=== PATIENT | female | born 1980 | race Caucasian/White ===

== ENCOUNTER 2016-07-10 21:25 | Emergency (ER) | payer OTHER ==
[2016-07-10 22:12] LABS: Basophils % (Auto) 0.6 % (0.0-1.8); Eosinophils % (Auto) 2.1 % (0.0-4.3); Hematocrit 39.2 % (30.3-42.9); Hemoglobin 12.8 gm/dl (10.1-14.3); Mean Corpuscular HGB Conc 33 % (30-34); Mean Corpuscular Hemoglobin 27 pg (28-32); Mean Corpuscular Volume 82 fl (79-97); Platelet Count 336 K/mm3 (140-440); Red Blood Count 4.81 M/mm3 (3.65-5.03); Red Cell Distribution Width 14.5 % (13.2-15.2); White Blood Count 10.3 K/mm3 (4.5-11.0)
[2016-07-10 22:29] LABS: Alanine Aminotransferase 16 units/L (7-56); Albumin 4.1 g/dL (3.9-5); Alkaline Phosphatase 104 units/L (35-129); Anion Gap 16 mmol/L; Bilirubin,Total 0.2 mg/dL (0.1-1.2); Blood Urea Nitrogen 10 mg/dL (7-17); Calcium 8.8 mg/dL (8.4-10.2); Carbon Dioxide 27 mmol/L (22-30); Chloride 98.4 mmol/L (98-107); Glucose 85 mg/dL (65-100); Lipase 33 units/L (13-60); Potassium 3.6 mmol/L (3.6-5.0); Sodium 138 mmol/L (137-145); Total Protein 8.2 g/dL (6.3-8.2)
[2016-07-10 22:58] LABS: Bacteria,Urine 1+ /HPF (Negative); Bilirubin,Urine NEG (Negative); Blood,Urine SM (Negative); Ketones,Urine NEG (Negative); Leukocyte Esterase,Urine TR (Negative); Mucus,Urine FEW /HPF; Nitrite,Urine NEG (Negative); Protein,Urine <15 mg/dL mg/dL (Negative); Urobilinogen,Urine < 2.0 mg/dL (<2.0)
[2016-07-11] MEDS ORDERED: NORCO 5/325 PO ONE (08:36)
--- NOTE | 2016-07-11 08:39 | Emergency Department Report ---
ED Abdominal Pain HPI - General Chief Complaint: Abdominal Pain Stated Complaint: RT SIDE PAIN Time Seen by Provider: 07/11/16 08:18 Source: patient Mode of arrival: Ambulatory Limitations: Language Barrier - History of Present Illness Initial Comments: 35-year-old female presents to the emergency department complaining of abdominal pain. Patient describes sharp right upper quadrant abdominal pain that has been present for approximately 3 days. Pain is been constant and does not radiate. Patient denies associated nausea, vomiting, or diarrhea. She does report some burning in her chest as well. There's been no fever. There are no other complaints. MD Complaint: abdominal pain -: Gradual, days(s) (3) Location: RUQ Radiation: none Migration to: no migration Severity: severe Severity scale (0 -10): 10 Quality: sharp Consistency: constant Improves With: nothing Worsens With: nothing Associated Symptoms: denies other symptoms - Related Data Previous Rx's Medication Instructions Recorded Last Taken Type Famotidine [Pepcid] 10 mg PO BID #30 tablet 04/28/14 Unknown Rx Prednisone [predniSONE 5 mg (6-Day 5 mg PO .TAPER #1 tab.ds.pk 12/15/14 Unknown Rx Pack, 21 Tabs)] hydrOXYzine PAMOATE [Vistaril] 50 mg PO Q8H PRN #20 capsule 12/15/14 Unknown Rx Ciprofloxacin HCl [Ciprofloxacin 500 mg PO Q12H #14 tab 08/07/15 Unknown Rx TAB] Omeprazole [PriLOSEC] 20 mg PO QDAY #30 capsule. 08/07/15 Unknown Rx Famotidine [Pepcid] 20 mg PO BID #10 tablet 07/11/16 Unknown Rx traMADol [Ultram] 50 mg PO Q6HR PRN #20 tablet 07/11/16 Unknown Rx Allergies Allergy/AdvReac Type Severity Reaction Status Date / Time No Known Allergies Allergy Verified 01/01/14 17:52 ED Review of Systems ROS: Stated complaint: RT SIDE PAIN Other details as noted in HPI Comment: All other systems reviewed and negative Gastrointestinal: abdominal pain. denies: nausea, vomiting, diarrhea ED Past Medical Hx - Past Medical History Previous Medical History?: No - Surgical History Past Surgical History?: Yes Hx Cholecystectomy: Yes Additional Surgical History: c-sec x 3 - Family History Family history: no significant - Social History Smoking Status: Never Smoker Substance Use Type: None - Medications Home Medications: Home Medications Medication Instructions Recorded Confirmed Last Taken Type Famotidine [Pepcid] 10 mg PO BID #30 tablet 04/28/14 Unknown Rx Prednisone [predniSONE 5 mg (6-Day 5 mg PO .TAPER #1 tab.ds.pk 12/15/14 Unknown Rx Pack, 21 Tabs)] hydrOXYzine PAMOATE [Vistaril] 50 mg PO Q8H PRN #20 capsule 12/15/14 Unknown Rx Ciprofloxacin HCl [Ciprofloxacin 500 mg PO Q12H #14 tab 08/07/15 Unknown Rx TAB] Omeprazole [PriLOSEC] 20 mg PO QDAY #30 capsule. 08/07/15 Unknown Rx Famotidine [Pepcid] 20 mg PO BID #10 tablet 07/11/16 Unknown Rx traMADol [Ultram] 50 mg PO Q6HR PRN #20 tablet 07/11/16 Unknown Rx ED Physical Exam - General Limitations: Language Barrier General appearance: alert, in no apparent distress - Head Head exam: Present: atraumatic, normocephalic - Eye Eye exam: Present: normal appearance, PERRL, EOMI - ENT ENT exam: Present: normal exam, normal orophraynx, mucous membranes moist - Neck Neck exam: Present: normal inspection, full ROM. Absent: tenderness - Respiratory Respiratory exam: Present: normal lung sounds bilaterally. Absent: respiratory distress - Cardiovascular Cardiovascular Exam: Present: regular rate, normal rhythm, normal heart sounds - GI/Abdominal GI/Abdominal exam: Present: soft, tenderness (mild right upper quadrant tenderness to palpation), normal bowel sounds. Absent: distended, guarding, rebound - Extremities Exam Extremities exam: Present: normal inspection, full ROM. Absent: tenderness - Back Exam Back exam: Present: normal inspection, full ROM. Absent: tenderness - Neurological Exam Neurological exam: Present: alert, oriented X3. Absent: motor sensory deficit - Skin Skin exam: Present: warm, dry, intact ED Course Vital Signs 07/10/16 07/11/16 07/11/16 21:46 03:32 06:30 Temperature 98.2 F 98.1 F Pulse Rate 73 73 Respiratory 18 18 18 Rate Blood Pressure 127/77 125/77 Blood Pressure [Left] O2 Sat by Pulse 100 100 99 Oximetry 07/11/16 07:25 Temperature 97.9 F Pulse Rate 69 Respiratory 16 Rate Blood Pressure Blood Pressure 107/70 [Left] O2 Sat by Pulse 100 Oximetry ED Medical Decision Making - Lab Data Result diagrams: 07/10/16 21:58 07/10/16 21:58 - Radiology Data Radiology results: report reviewed Abdominal ultrasound is read as normal by radiology. - Medical Decision Making Lab and imaging results reviewed and discussed with the patient through the aid of an process development chemist. Patient reports symptoms are improved medication. Patient will be discharged home at this time. - Differential Diagnosis abdominal pain, cholecystitis, cholelithiasis, PUD, gastritis Critical care attestation.: If time is entered above; I have spent that time in minutes in the direct care of this critically ill patient, excluding procedure time. ED Disposition Clinical Impression: Acute gastritis with hemorrhage Qualifiers: Gastritis type: other gastritis Qualified Code(s): K29.01 - Acute gastritis with bleeding Disposition: DISCHARGED TO HOME OR SELFCARE Is pt being admited?: No Condition: Stable Instructions: Abdominal Pain (ED) Prescriptions: Famotidine [Pepcid] 20 mg PO BID #10 tablet traMADol [Ultram] 50 mg PO Q6HR PRN #20 tablet PRN Reason: Pain Referrals: PRIMARY CARE, [Primary Care Provider] - 3-5 Days Time of Disposition: 11:33 Print Language: YAKUT
--- NOTE | 2016-07-11 09:36 | Ultrasound Report ---
RIGHT UPPER QUADRANT ULTRASOUND: HISTORY: Right upper quadrant abdominal pain. Technique: Transabdominal ultrasound imaging with Doppler interrogation. FINDINGS: The gallbladder is surgically absent. The common duct is normal in caliber measuring 4.2 mm. Images of the liver parenchyma, pancreas, right kidney and aorta are within normal limits. No perihepatic ascites. IMPRESSION: Unremarkable right upper quadrant ultrasound.
[2016-07-11] MEDS ORDERED: NORCO 5/325 ONE (11:04)
[2016-07-11 11:49] VITALS: BP 113/65
== END 2016-07-11 11:57 | disposition home or self-care (01) ==
LOC: ED 21:25
DX: K29.01 Acute gastritis with bleeding (principal); Z90.49 Acquired absence of other specified parts of digestive tract
CPT/HCPCS: 36415; 76705; 80053; 81001; 81025; 83690; 85025

== ENCOUNTER 2017-05-20 00:41 | Emergency (ER) | payer MEDICAID ==
[2017-05-20 03:41] LABS: Basophils # (Auto) 0.1 K/mm3 (0.0-0.1); Basophils % (Auto) 0.9 % (0.0-1.8); Eosinophils # (Auto) 0.2 K/mm3 (0.0-0.4); Eosinophils % (Auto) 3.9 % (0.0-4.3); Hematocrit 37.3 % (30.3-42.9); Hemoglobin 12.5 gm/dl (10.1-14.3); Lymphocytes # (Auto) 1.7 K/mm3 (1.2-5.4); Mean Corpuscular HGB Conc 34 % (30-34); Mean Corpuscular Hemoglobin 27 pg (28-32); Mean Corpuscular Volume 80 fl (79-97); Monocytes # (Auto) 0.7 K/mm3 (0.0-0.8); Platelet Count 321 K/mm3 (140-440); Red Blood Count 4.69 M/mm3 (3.65-5.03); Red Cell Distribution Width 14.9 % (13.2-15.2)
[2017-05-20 03:51] LABS: Alanine Aminotransferase 19 units/L (7-56); Albumin 3.9 g/dL (3.9-5); BUN/Creatinine Ratio 20; Blood Urea Nitrogen 14 mg/dL (7-17); Calcium 8.3 mg/dL (8.4-10.2); Hemolysis Index 3; Lipase 32 units/L (13-60)
[2017-05-20 05:56] LABS: Bilirubin,Urine NEG (Negative); Blood,Urine LG (Negative); Color,Urine Yellow (Yellow); Mucus,Urine FEW /HPF; Nitrite,Urine NEG (Negative); Protein,Urine <15 mg/dL mg/dL (Negative); Urobilinogen,Urine < 2.0 mg/dL (<2.0)
[2017-05-20] MEDS ORDERED: ZOFRAN IM ONE (12:34)
[2017-05-20] MEDS ORDERED: MORPHINE IM ONE (12:34)
--- NOTE | 2017-05-20 12:39 | Emergency Department Report ---
ED Abdominal Pain HPI - General Chief Complaint: Abdominal Pain Stated Complaint: PAIN Time Seen by Provider: 05/20/17 12:16 Source: patient Mode of arrival: Ambulatory Limitations: No Limitations - History of Present Illness Initial Comments: Patient is 36 years old female history of peptic ulcer presented to the ER with chief complaint of epigastric pain, burning sensation and vomiting for the last 3 days. Patient denied any fever or diarrhea. No chest pain or shortness of breath. Patient denied any NSAID use recently. Patient denied any hematemesis or melena or hematochezia. MD Complaint: abdominal pain -: days(s) Location: epigastric Radiation: none Migration to: no migration Severity scale (0 -10): 8 Quality: burning - Related Data Previous Rx's Medication Instructions Recorded Last Taken Type Famotidine [Pepcid] 10 mg PO BID #30 tablet 04/28/14 Unknown Rx Prednisone [predniSONE 5 mg (6-Day 5 mg PO .TAPER #1 tab.ds.pk 12/15/14 Unknown Rx Pack, 21 Tabs)] hydrOXYzine PAMOATE [Vistaril] 50 mg PO Q8H PRN #20 capsule 12/15/14 Unknown Rx Ciprofloxacin HCl [Ciprofloxacin 500 mg PO Q12H #14 tab 08/07/15 Unknown Rx TAB] Omeprazole [PriLOSEC] 20 mg PO QDAY #30 capsule. 08/07/15 Unknown Rx Famotidine [Pepcid] 20 mg PO BID #10 tablet 07/11/16 Unknown Rx traMADol [Ultram] 50 mg PO Q6HR PRN #20 tablet 07/11/16 Unknown Rx Famotidine [Pepcid] 20 mg PO QDAY #30 tablet 02/03/17 Unknown Rx Sucralfate [Carafate] 1 gm PO Q6HR #120 tablet 02/03/17 Unknown Rx Allergies Allergy/AdvReac Type Severity Reaction Status Date / Time No Known Allergies Allergy Verified 01/01/14 17:52 ED Review of Systems ROS: Stated complaint: PAIN Other details as noted in HPI Comment: All other systems reviewed and negative Constitutional: denies: chills, fever Respiratory: denies: cough, shortness of breath, SOB with exertion, wheezing Cardiovascular: denies: chest pain, palpitations, dyspnea on exertion Gastrointestinal: abdominal pain, nausea, vomiting. denies: diarrhea, constipation, hematemesis, melena, hematochezia Neurological: denies: headache, weakness, numbness, paresthesias ED Past Medical Hx - Past Medical History Additional medical history: Gastritis - Surgical History Hx Cholecystectomy: Yes Additional Surgical History: c-sec x 3 - Social History Smoking Status: Never Smoker Substance Use Type: None - Medications Home Medications: Home Medications Medication Instructions Recorded Confirmed Last Taken Type Famotidine [Pepcid] 10 mg PO BID #30 tablet 04/28/14 Unknown Rx Prednisone [predniSONE 5 mg (6-Day 5 mg PO .TAPER #1 tab.ds.pk 12/15/14 Unknown Rx Pack, 21 Tabs)] hydrOXYzine PAMOATE [Vistaril] 50 mg PO Q8H PRN #20 capsule 12/15/14 Unknown Rx Ciprofloxacin HCl [Ciprofloxacin 500 mg PO Q12H #14 tab 08/07/15 Unknown Rx TAB] Omeprazole [PriLOSEC] 20 mg PO QDAY #30 capsule.dr 08/07/15 Unknown Rx Famotidine [Pepcid] 20 mg PO BID #10 tablet 07/11/16 Unknown Rx traMADol [Ultram] 50 mg PO Q6HR PRN #20 tablet 07/11/16 Unknown Rx Famotidine [Pepcid] 20 mg PO QDAY #30 tablet 02/03/17 Unknown Rx Sucralfate [Carafate] 1 gm PO Q6HR #120 tablet 02/03/17 Unknown Rx ED Physical Exam - General Limitations: No Limitations General appearance: alert, in no apparent distress - Head Head exam: Present: atraumatic, normocephalic, normal inspection - ENT ENT exam: Present: normal exam, normal orophraynx, mucous membranes moist - Neck Neck exam: Present: normal inspection, full ROM. Absent: tenderness, meningismus, lymphadenopathy - Respiratory Respiratory exam: Present: normal lung sounds bilaterally. Absent: respiratory distress, wheezes, rales, rhonchi, chest wall tenderness, accessory muscle use, decreased breath sounds, prolonged expiratory - Cardiovascular Cardiovascular Exam: Present: regular rate, normal rhythm, normal heart sounds - GI/Abdominal GI/Abdominal exam: Present: soft, tenderness (epigastric tenderness), normal bowel sounds. Absent: distended, guarding, rebound, rigid, organomegaly, mass, bruit, pulsatile mass, hernia - Extremities Exam Extremities exam: Present: normal inspection, full ROM, normal capillary refill. Absent: tenderness, pedal edema, joint swelling, calf tenderness - Back Exam Back exam: Absent: CVA tenderness (R), CVA tenderness (L) - Neurological Exam Neurological exam: Present: alert, oriented X3, CN II-XII intact, normal gait, reflexes normal. Absent: motor sensory deficit - Skin Skin exam: Present: warm, intact, normal color. Absent: cyanosis, diaphoretic, erythema, urticaria ED Course Vital Signs 05/20/17 05/20/17 05/20/17 02:21 02:43 08:11 Temperature 97.9 F 98.6 F Pulse Rate 64 71 Respiratory 16 16 Rate Blood Pressure 148/52 128/74 Blood Pressure [Right] O2 Sat by Pulse 100 100 100 Oximetry 05/20/17 13:40 Temperature 98.1 F Pulse Rate 64 Respiratory 18 Rate Blood Pressure Blood Pressure 112/62 [Right] O2 Sat by Pulse 99 Oximetry - Reevaluation(s) Reevaluation #1: 05/20/17 15:42 Patient stated that she is feeling much better, abdominal pain resolves no nausea no vomiting. ED Medical Decision Making - Lab Data Result diagrams: 05/20/17 02:57 05/20/17 02:57 Critical care attestation.: If time is entered above; I have spent that time in minutes in the direct care of this critically ill patient, excluding procedure time. ED Disposition Clinical Impression: Abdominal pain, Peptic ulcer, Vomiting Disposition: DC-01 TO HOME OR SELFCARE Is pt being admited?: No Condition: Stable Instructions: Abdominal Pain (ED) Referrals: ONESIMO MORENO MD [Primary Care Provider] - 3-5 Days
[2017-05-20 13:41] VITALS: BP 112/62
--- NOTE | 2017-05-20 13:47 | XRay Report ---
ABDOMINAL SERIES: History: Abdominal pain. Erect chest film shows no acute or significant changes involving the heart or lung valdivia. There is no evidence of free air beneath the diaphragms. The gas pattern within the abdomen is unremarkable. There is no evidence of bowel dilatation, significant air-fluid levels, or masses. Organ shadows are unremarkable. Cholecystectomy clips are noted in the right upper quadrant. IMPRESSION: Abdominal series within normal limits.
[2017-05-20] MEDS ORDERED: ALUM-MAG HYDROX-SIMETH 200-200-20MG/5ML PO ONE (14:36)
[2017-05-20] MEDS ORDERED: LIDOCAINE VISCOUS 2% PO ONE (14:36)
== END 2017-05-20 16:00 | disposition home or self-care (01) ==
LOC: ED 00:41
DX: K27.9 Peptic ulcer, site unspecified, unspecified as acute or chronic, without hemorrhage or perforation (principal)
CPT/HCPCS: 36415; 74022; 80053; 81001; 83690; 84703; 85025; 96372; 99284; J2270; J2405

== ENCOUNTER 2017-07-06 08:58 | Emergency (ER) | payer MEDICAID ==
[2017-07-06] MEDS ORDERED: ASPIRIN PO ONE (09:17)
[2017-07-06 09:55] LABS: HCG Qualitative,Urine Negative (Negative)
[2017-07-06 09:56] LABS: Bilirubin,Urine NEG (Negative); Blood,Urine SM (Negative); Color,Urine Yellow (Yellow); Hyaline Casts,Urine 1 /LPF; Mucus,Urine 1+ /HPF; Protein,Urine <15 mg/dL mg/dL (Negative); Urobilinogen,Urine < 2.0 mg/dL (<2.0)
[2017-07-06 10:28] LABS: Basophils % (Auto) 0.6 % (0.0-1.8); Eosinophils # (Auto) 0.1 K/mm3 (0.0-0.4); Eosinophils % (Auto) 2.4 % (0.0-4.3); Hematocrit 39.3 % (30.3-42.9); Hemoglobin 12.8 gm/dl (10.1-14.3); Lymphocytes # (Auto) 1.4 K/mm3 (1.2-5.4); Mean Corpuscular HGB Conc 33 % (30-34); Mean Corpuscular Hemoglobin 26 pg (28-32); Mean Corpuscular Volume 81 fl (79-97); Monocytes # (Auto) 0.7 K/mm3 (0.0-0.8); Monocytes % (Auto) 11.7 % (0.0-7.3); Platelet Count 307 K/mm3 (140-440); Red Blood Count 4.88 M/mm3 (3.65-5.03); Red Cell Distribution Width 14.8 % (13.2-15.2)
[2017-07-06 10:41] LABS: BUN/Creatinine Ratio 28; Blood Urea Nitrogen 11 mg/dL (7-17); Calcium 8.2 mg/dL (8.4-10.2); Hemolysis Index 12
--- NOTE | 2017-07-06 10:46 | Emergency Department Report ---
ED Chest Pain HPI - General Chief Complaint: Abdominal Pain Stated Complaint: ABDOMINAL PAIN Time Seen by Provider: 07/06/17 10:11 Source: patient Mode of arrival: Ambulatory Limitations: Language Barrier - History of Present Illness MD Complaint: other (abdominal pain) -: days(s) (2) Onset: during rest Pain Location: epigastric Pain Radiation: none Severity: mild Quality: aching, pressure Consistency: intermittent Improves With: antacids, other (Omeprazole) Worsens With: eating Context: other (Out of her prescription for Omeprazole) Treatments Prior to Arrival: none Aspirin use within the Past 7 Days: (1) Yes (given here. Misunderstood CC was chest pain) - Related Data Previous Rx's Medication Instructions Recorded Last Taken Type Famotidine [Pepcid] 10 mg PO BID #30 tablet 04/28/14 Unknown Rx Prednisone [predniSONE 5 mg (6-Day 5 mg PO .TAPER #1 tab.ds.pk 12/15/14 Unknown Rx Pack, 21 Tabs)] Ciprofloxacin HCl [Ciprofloxacin 500 mg PO Q12H #14 tab 08/07/15 Unknown Rx TAB] Omeprazole [PriLOSEC] 20 mg PO QDAY #30 capsule. 08/07/15 Unknown Rx Famotidine [Pepcid] 20 mg PO BID #10 tablet 07/11/16 Unknown Rx traMADol [Ultram] 50 mg PO Q6HR PRN #20 tablet 07/11/16 Unknown Rx Famotidine [Pepcid] 20 mg PO QDAY #30 tablet 02/03/17 Unknown Rx Sucralfate [Carafate] 1 gm PO Q6HR #120 tablet 02/03/17 Unknown Rx Esomeprazole Magnesium [NexIUM] 40 mg PO QDAY #30 capsule. 05/20/17 Unknown Rx Ondansetron [Zofran Odt] 4 mg PO Q8HR PRN #14 tab.rapdis 05/20/17 Unknown Rx Sucralfate 1 gm PO AC #120 tablet 05/20/17 Unknown Rx Allergies Allergy/AdvReac Type Severity Reaction Status Date / Time No Known Allergies Allergy Verified 01/01/14 17:52 ED Review of Systems ROS: Stated complaint: ABDOMINAL PAIN Other details as noted in HPI Comment: All other systems reviewed and negative Constitutional: denies: chills, fever Eyes: denies: eye pain, eye discharge, vision change ENT: denies: ear pain, throat pain Respiratory: denies: cough, shortness of breath, wheezing Cardiovascular: denies: chest pain, palpitations Endocrine: no symptoms reported Gastrointestinal: abdominal pain. denies: nausea, diarrhea Genitourinary: denies: urgency, dysuria, discharge Musculoskeletal: denies: back pain, joint swelling, arthralgia Skin: denies: rash, lesions Neurological: denies: headache, weakness, paresthesias Psychiatric: denies: anxiety, depression Hematological/Lymphatic: denies: easy bleeding, easy bruising ED Past Medical Hx - Past Medical History Previous Medical History?: Yes Additional medical history: Gastritis - Surgical History Hx Cholecystectomy: Yes Additional Surgical History: c-sec x 3 - Social History Smoking Status: Never Smoker Substance Use Type: None - Medications Home Medications: Home Medications Medication Instructions Recorded Confirmed Last Taken Type Famotidine [Pepcid] 10 mg PO BID #30 tablet 04/28/14 Unknown Rx Prednisone [predniSONE 5 mg (6-Day 5 mg PO .TAPER #1 tab.ds.pk 12/15/14 Unknown Rx Pack, 21 Tabs)] Ciprofloxacin HCl [Ciprofloxacin 500 mg PO Q12H #14 tab 08/07/15 Unknown Rx TAB] Omeprazole [PriLOSEC] 20 mg PO QDAY #30 capsule. 08/07/15 Unknown Rx Famotidine [Pepcid] 20 mg PO BID #10 tablet 07/11/16 Unknown Rx traMADol [Ultram] 50 mg PO Q6HR PRN #20 tablet 07/11/16 Unknown Rx Famotidine [Pepcid] 20 mg PO QDAY #30 tablet 02/03/17 Unknown Rx Sucralfate [Carafate] 1 gm PO Q6HR #120 tablet 02/03/17 Unknown Rx Esomeprazole Magnesium [NexIUM] 40 mg PO QDAY #30 capsule. 05/20/17 Unknown Rx Ondansetron [Zofran Odt] 4 mg PO Q8HR PRN #14 tab.rapdis 05/20/17 Unknown Rx Sucralfate 1 gm PO AC #120 tablet 05/20/17 Unknown Rx ED Physical Exam - General Limitations: Language Barrier General appearance: alert, in no apparent distress - Head Head exam: Present: atraumatic, normocephalic - Eye Eye exam: Present: normal appearance - ENT ENT exam: Present: mucous membranes moist - Neck Neck exam: Present: normal inspection - Respiratory Respiratory exam: Present: normal lung sounds bilaterally. Absent: respiratory distress - Cardiovascular Cardiovascular Exam: Present: regular rate, normal rhythm. Absent: systolic murmur, diastolic murmur, rubs, gallop - GI/Abdominal GI/Abdominal exam: Present: soft, tenderness (mid-epigastric), normal bowel sounds - Extremities Exam Extremities exam: Present: normal inspection - Back Exam Back exam: Present: normal inspection - Neurological Exam Neurological exam: Present: alert, oriented X3 - Psychiatric Psychiatric exam: Present: normal affect, normal mood - Skin Skin exam: Present: warm, dry, intact, normal color. Absent: rash ED Course Vital Signs 07/06/17 09:14 Temperature 98.5 F Pulse Rate 70 Respiratory 16 Rate Blood Pressure 129/69 O2 Sat by Pulse 100 Oximetry - Reevaluation(s) Reevaluation #1: 07/06/17 10:49 Patient will be given GI cocktail for discomfort. ED Medical Decision Making - EKG Data -: EKG Interpreted by Me EKG shows normal: sinus rhythm, axis (n), QRS complexes (normal) Rate: normal - EKG Data When compared to previous EKG there are: previous EKG unavailable Interpretation: no acute changes, normal EKG - Medical Decision Making Patient stable. Will be prescribed Omeprazole 20 mg (30) 1 PO QD. Critical Care Time: No Critical care attestation.: If time is entered above; I have spent that time in minutes in the direct care of this critically ill patient, excluding procedure time. ED Disposition Disposition: - TO HOME OR SELFCARE Is pt being admited?: No Does the pt Need Aspirin: No Condition: Stable Instructions: Abdominal Pain (ED) Time of Disposition: 10:51
[2017-07-06] MEDS ORDERED: ALUM-MAG HYDROX-SIMETH 200-200-20MG/5ML PO ONE (10:51)
[2017-07-06 11:03] VITALS: BP 110/60
== END 2017-07-06 11:35 | disposition home or self-care (01) ==
LOC: ED 08:58
DX: K29.70 Gastritis, unspecified, without bleeding (principal); R10.13 Epigastric pain; Z90.49 Acquired absence of other specified parts of digestive tract
CPT/HCPCS: 36415; 80048; 81001; 81025; 84484; 85025; 93005; 93010

== ENCOUNTER 2019-07-16 07:37 | Emergency (ER) | payer SELFPAY ==
[2019-07-16 07:42] VITALS: BP 112/77
[2019-07-16] MEDS ORDERED: dexAMETHasone 4 MG/ML VIAL IM ONE (07:47)
[2019-07-16] MEDS ORDERED: AMOXICILLIN 500 MG CAP PO ONE (07:47)
--- NOTE | 2019-07-16 07:49 | Emergency Department Report ---
Minor Respiratory - HPI Chief Complaint: Earache Stated Complaint: EARACHE, CHILLS Time Seen by Provider: 07/16/19 07:46 Duration: 2 Days Pain Location: Ear Severity: mild Minor Respiratory: Yes Able to Tolerate Fluids, Yes Ear Pain, No Rhinorrhea, No Sore Throat, No Cough, No Sick Contacts, No Hemoptysis, No Chest Pain, No Shortness of Breath, No Fever Other History: 38 YO COMES TO ER WITH L EAR PAIN. THE EAR IS RED, SWOLLEN AND INFLAMMED. NO FB. POS CHILLS. NO FEVER. NO DIFFICULTY HEARING. ED Review of Systems ROS: Stated complaint: EARACHE, CHILLS Other details as noted in HPI Comment: All other systems reviewed and negative ED Past Medical Hx - Past Medical History Previous Medical History?: Yes Hx Heart Attack/AMI: No Additional medical history: Gastritis - Surgical History Past Surgical History?: Yes Hx Cholecystectomy: Yes Additional Surgical History: c-sec x 3 - Family History Family history: no significant - Social History Smoking Status: Never Smoker - Medications Home Medications: Home Medications Medication Instructions Recorded Confirmed Last Taken Type Famotidine [Pepcid] 10 mg PO BID #30 tablet 04/28/14 Unknown Rx Prednisone [predniSONE 5 mg (6-Day 5 mg PO .TAPER #1 tab.ds.pk 12/15/14 Unknown Rx Pack, 21 Tabs)] Ciprofloxacin HCl [Ciprofloxacin 500 mg PO Q12H #14 tab 08/07/15 Unknown Rx TAB] Omeprazole [PriLOSEC] 20 mg PO QDAY #30 capsule. 08/07/15 Unknown Rx Famotidine [Pepcid] 20 mg PO BID #10 tablet 07/11/16 Unknown Rx traMADoL [Ultram] 50 mg PO Q6HR PRN #20 tablet 07/11/16 Unknown Rx Famotidine [Pepcid] 20 mg PO QDAY #30 tablet 02/03/17 Unknown Rx Sucralfate [Carafate] 1 gm PO Q6HR #120 tablet 02/03/17 Unknown Rx Esomeprazole Magnesium [NexIUM] 40 mg PO QDAY #30 capsule. 05/20/17 Unknown Rx Ondansetron [Zofran Odt] 4 mg PO Q8HR PRN #14 tab.rapdis 05/20/17 Unknown Rx Sucralfate 1 gm PO AC #120 tablet 05/20/17 Unknown Rx Omeprazole 20 mg PO QDAY #30 tablet. 07/06/17 Unknown Rx Amoxicillin [Trimox CAP] 500 mg PO BID #20 capsule 07/16/19 Unknown Rx Ciprofloxacin HCl/Dexameth 1 drop OS BID #7.5 ml 07/16/19 Unknown Rx [Ciprodex Otic Suspension] Minor Respiratory Exam - Exam General: Vital signs noted. No distress. Alert and acting appropriately. HEENT: Yes Moist Mucous Membranes, No Pharyngeal Erythema, No Pharyngeal Exudates, No Rhinorrhea, No Conjuctival Injection, No Frontal Tenderness, No Maxillary Tenderness Ear: Left EAC Pain, Left EAC Discharge, Neither TM Bulge, Neither TM Erythema Neck: Yes Adenopathy, Yes Supple Lungs: Yes Good Air Exchange, No Wheezes, No Ronchi, No Stridor, No Cough, No Labored Respirations, No Retractions, No Use of Accessory Muscles, No Other Abnormal Lung Sounds Heart: Yes Regular, No Murmur Abdomen: Yes Normal Bowel Sounds, No Tenderness, No Peritoneal Signs Skin: No Rash, No Edema Neurologic: Alert and oriented, no deficits. Musculoskeletal: Unremarkable. ED Course Vital Signs 07/16/19 07:41 Temperature 98.6 F Pulse Rate 97 H Respiratory 18 Rate Blood Pressure 112/77 O2 Sat by Pulse 98 Oximetry ED Medical Decision Making - Medical Decision Making OE L EAR NO FB TM INTACT [facility] FOR PAIN AND SWELLING DC HOME WITH AMOX AND PCP FOLLOW UP AMBULATORY TAKING PO Vital Signs 07/16/19 07:41 Temperature 98.6 F Pulse Rate 97 H Respiratory 18 Rate Blood Pressure 112/77 O2 Sat by Pulse 98 Oximetry - Differential Diagnosis OTITIS EXTERNA/INTERNA Critical care attestation.: If time is entered above; I have spent that time in minutes in the direct care of this critically ill patient, excluding procedure time. ED Disposition Clinical Impression: Otitis externa Disposition: DC-01 TO HOME OR SELFCARE Is pt being admited?: No Does the pt Need Aspirin: No Condition: Stable Instructions: Otitis Externa (ED) Prescriptions: Ciprofloxacin HCl/Dexameth [Ciprodex Otic Suspension] 1 drop OS BID #7.5 ml Amoxicillin [Trimox CAP] 500 mg PO BID #20 capsule Referrals: BERNIE MENDOZA MD [Staff Physician] - 3-5 Days Time of Disposition: 07:46 Print Language: MARSHALLESE
== END 2019-07-16 08:08 | disposition home or self-care (01) ==
LOC: ED 07:37
DX: H60.92 Unspecified otitis externa, left ear (principal); K29.70 Gastritis, unspecified, without bleeding; Z90.49 Acquired absence of other specified parts of digestive tract; Z98.890 Other specified postprocedural states; Z79.2 Long term (current) use of antibiotics; Z79.899 Other long term (current) drug therapy
CPT/HCPCS: 96372; 99282; J1100

== ENCOUNTER 2020-02-26 13:13 | Emergency (ER) | payer SELFPAY ==
[2020-02-26 15:07] VITALS: BP 124/66
--- NOTE | 2020-02-26 16:06 | XRay Report ---
XR chest routine 2V INDICATION / CLINICAL INFORMATION: cough, fever. COMPARISON: None available. FINDINGS: SUPPORT DEVICES: None. HEART /PULMONARY VASCULATURE: No significant abnormality. LUNGS / PLEURA: No significant pulmonary or pleural abnormality. No pneumothorax. ADDITIONAL FINDINGS: No significant additional findings. IMPRESSION: 1. No acute findings. Signer Name: Luis Norris MD Signed: 02/26/2020 4:02 PM Workstation Name: [id number]
--- NOTE | 2020-02-26 16:11 | Emergency Department Report ---
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 She has associated subjective fever, chills, discomfort with swallowing, cough, couple episodes of vomiting, headache, generalized body aches. She denies any diarrhea, shortness of breath, abdominal pain, chest pain. She denies any past medical history. No allergies to medications. Last menstrual cycle 02/22/2020. She denies any sick contacts or recent travel. - Related Data Previous Rx's Medication Instructions Recorded Last Taken Type Famotidine [Pepcid] 10 mg PO BID #30 tablet 04/28/14 Unknown Rx Prednisone [predniSONE 5 mg (6-Day 5 mg PO .TAPER #1 tab.ds.pk 12/15/14 Unknown Rx Pack, 21 Tabs)] Ciprofloxacin HCl [Ciprofloxacin 500 mg PO Q12H #14 tab 08/07/15 Unknown Rx TAB] Omeprazole [PriLOSEC] 20 mg PO QDAY #30 capsule. 08/07/15 Unknown Rx Famotidine [Pepcid] 20 mg PO BID #10 tablet 07/11/16 Unknown Rx traMADoL [Ultram] 50 mg PO Q6HR PRN #20 tablet 07/11/16 Unknown Rx Famotidine [Pepcid] 20 mg PO QDAY #30 tablet 02/03/17 Unknown Rx Sucralfate [Carafate] 1 gm PO Q6HR #120 tablet 02/03/17 Unknown Rx Esomeprazole Magnesium [NexIUM] 40 mg PO QDAY #30 capsule. 05/20/17 Unknown Rx Ondansetron [Zofran Odt] 4 mg PO Q8HR PRN #14 tab.rapdis 05/20/17 Unknown Rx Sucralfate 1 gm PO AC #120 tablet 05/20/17 Unknown Rx Omeprazole 20 mg PO QDAY #30 tablet. 07/06/17 Unknown Rx Amoxicillin [Trimox CAP] 500 mg PO BID #20 capsule 07/16/19 Unknown Rx Ciprofloxacin HCl/Dexameth 1 drop OS BID #7.5 ml 07/16/19 Unknown Rx [Ciprodex Otic Suspension] Allergies Allergy/AdvReac Type Severity Reaction Status Date / Time No Known Allergies Allergy Verified 07/16/19 07:38 ED Review of Systems ROS: Stated complaint: THROAT PAIN Other details as noted in HPI Comment: All other systems reviewed and negative ED Past Medical Hx - Past Medical History Hx Heart Attack/AMI: No Additional medical history: Gastritis - Surgical History Hx Cholecystectomy: Yes Additional Surgical History: c-sec x 3 - Social History Smoking Status: Never Smoker Substance Use Type: None - Medications Home Medications: Home Medications Medication Instructions Recorded Confirmed Last Taken Type Famotidine [Pepcid] 10 mg PO BID #30 tablet 04/28/14 Unknown Rx Prednisone [predniSONE 5 mg (6-Day 5 mg PO .TAPER #1 tab.ds.pk 12/15/14 Unknown Rx Pack, 21 Tabs)] Ciprofloxacin HCl [Ciprofloxacin 500 mg PO Q12H #14 tab 08/07/15 Unknown Rx TAB] Omeprazole [PriLOSEC] 20 mg PO QDAY #30 capsule. 08/07/15 Unknown Rx Famotidine [Pepcid] 20 mg PO BID #10 tablet 07/11/16 Unknown Rx traMADoL [Ultram] 50 mg PO Q6HR PRN #20 tablet 07/11/16 Unknown Rx Famotidine [Pepcid] 20 mg PO QDAY #30 tablet 02/03/17 Unknown Rx Sucralfate [Carafate] 1 gm PO Q6HR #120 tablet 02/03/17 Unknown Rx Esomeprazole Magnesium [NexIUM] 40 mg PO QDAY #30 capsule. 05/20/17 Unknown Rx Ondansetron [Zofran Odt] 4 mg PO Q8HR PRN #14 tab.rapdis 05/20/17 Unknown Rx Sucralfate 1 gm PO AC #120 tablet 05/20/17 Unknown Rx Omeprazole 20 mg PO QDAY #30 tablet. 07/06/17 Unknown Rx Amoxicillin [Trimox CAP] 500 mg PO BID #20 capsule 07/16/19 Unknown Rx Ciprofloxacin HCl/Dexameth 1 drop OS BID #7.5 ml 07/16/19 Unknown Rx [Ciprodex Otic Suspension] ED Physical Exam - General Limitations: No Limitations General appearance: alert, in no apparent distress - Head Head exam: Present: atraumatic, normocephalic - Eye Eye exam: Present: normal appearance - ENT ENT exam: Present: mucous membranes moist, TM's normal bilaterally, normal external ear exam, other (mild posterior oropharynx erythema, no tonsillar exudates or hypertrophy, uvula is midline, no uvular edema or deviation, no trismus, no tongue elevation, no muffled voice) - Respiratory Respiratory exam: Present: normal lung sounds bilaterally. Absent: respiratory distress, wheezes, rales, rhonchi, stridor, chest wall tenderness, accessory muscle use, decreased breath sounds, prolonged expiratory - Cardiovascular Cardiovascular Exam: Present: regular rate, normal rhythm, normal heart sounds. Absent: systolic murmur, diastolic murmur, rubs, gallop - Neurological Exam Neurological exam: Present: alert, oriented X3 - Psychiatric Psychiatric exam: Present: normal affect, normal mood - Skin Skin exam: Present: warm, dry, intact ED Course Vital Signs 02/26/20 14:27 Temperature 98.3 F Pulse Rate 70 Respiratory 20 Rate Blood Pressure 124/66 O2 Sat by Pulse 95 Oximetry ED Medical Decision Making - Lab Data Lab Results 02/26/20 Range/Units 15:30 Group A Strep Rapid Negative (Negative) - Radiology Data Radiology results: report reviewed Ordering Physician: CHAKA ELAINE Date of Service: 02/26/20 Procedure(s): XR chest routine 2V Accession Number(s): [id number] cc: CHAKA ELAINE Fluoro Time In Minutes: XR chest routine 2V INDICATION / CLINICAL INFORMATION: cough, fever. COMPARISON: None available. FINDINGS: SUPPORT DEVICES: None. HEART /PULMONARY VASCULATURE: No significant abnormality. LUNGS / PLEURA: No significant pulmonary or pleural abnormality. No pneumothorax. ADDITIONAL FINDINGS: No significant additional findings. IMPRESSION: 1. No acute findings. Signer Name: Bandar Norris MD Signed: 02/26/2020 4:02 PM Workstation Name: [id number] Transcribed By: JS Dictated By: BANDAR SANCHEZ MD Electronically Authenticated By: BANDAR SANCHEZ MD Signed Date/Time: 02/26/201601 DD/ 01 TD/TT: - Medical Decision Making Jemima, patient reimbursement representative used for [place]ian interpretation Patient is a 39-year-old female presents emergency room with complaints of a sore throat that began 3 days ago. She has associated subjective fever, chills, discomfort with swallowing, cough, couple episodes of vomiting, headache, generalized body aches. She denies any diarrhea, shortness of breath, abdominal pain, chest pain. She denies any past medical history. No allergies to medications. Last menstrual cycle 02/22/2020. She denies any sick contacts or recent travel. Vitals are normal. On exam:mild posterior oropharynx erythema, no tonsillar exudates or hypertrophy, uvula is midline, no uvular edema or deviation, no trismus, no tongue elevation, no muffled voice. rapid strep is negative. CXR: 1. No acute findings. Symptoms likely related to viral URI and mild viral pharyngitis. Patient is presenting during a COVID-19 pandemic, discussed the possibility of COVID-19 with patient, discussed strict return precautions, discussed outpatient testing, discussed self quarantine. Advised pt Please increase your fluid intake over the next several days. May take Tylenol as needed for fever or body aches. May take kmip-xjb-mgulnjs cold symptom relief medication such as Mucinex or TheraFlu. Gargle with warm salt water 3 times a day. May use ligd-yqd-adpwcyd throat spray or throat lozenges. Follow-up with a primary care doctor for reexamination. Return to emergency room immediately for any new or worsening symptoms including but not limited to difficulty breathing, shortness of breath, severe chest pain, unable to tolerate by mouth intake, etc. Please self quarantine for 2 weeks from the onset of your symptoms. Please do not go out in public. If you are around others at home please wear a mask. If you need to cough or sneeze please do so in a napkin and immediately throw it away and immediately wash your hands. Wash your hands frequently. Wipe everything down. Recommend for you to get COVID-19 testing, may have this done at primary care doctor, health department, [facility] thr testing center. - Differential Diagnosis Strep throat, sinusitis, URI, PNA, bronchitis, COVID-19, viral syndrome Critical care attestation.: If time is entered above; I have spent that time in minutes in the direct care of this critically ill patient, excluding procedure time. ED Disposition Clinical Impression: Viral illness Disposition: DC-01 TO HOME OR SELFCARE Is pt being admited?: No Does the pt Need Aspirin: No Condition: Stable Instructions: COVID-19, Viral Respiratory Infection, [id number]-Sydm Additional Instructions: Please increase your fluid intake over the next several days. May take Tylenol as needed for fever or body aches. May take wfhf-qby-rndznba cold symptom relief medication such as Mucinex or TheraFlu. Gargle with warm salt water 3 times a day. May use hisr-yoj-gmhkdai throat spray or throat lozenges. Follow-up with a primary care doctor for reexamination. Return to emergency room immediately for any new or worsening symptoms including but not limited to difficulty breathing, shortness of breath, severe chest pain, unable to tolerate by mouth intake, etc. Please self quarantine for 2 weeks from the onset of your symptoms. Please do not go out in public. If you are around others at home please wear a mask. If you need to cough or sneeze please do so in a napkin and immediately throw it away and immediately wash your hands. Wash your hands frequently. Wipe everything down. Recommend for you to get COVID-19 testing, may have this done at primary care doctor, health department, [facility] testing center. Referrals: BERNIE MENDOZA MD [Staff Physician] - 3-5 Days [facility] [Provider Group] - 3-5 Days [facility], [LAB/CONTRACT] - 3-5 Days Forms: Work/School Release Form(ED) Time of Disposition: 16:10 Print Language: GUATEMALAN
== END 2020-02-26 16:29 | disposition home or self-care (01) ==
LOC: ED 13:13
DX: B34.9 Viral infection, unspecified (principal); Z79.899 Other long term (current) drug therapy; Z98.890 Other specified postprocedural states
CPT/HCPCS: 71046; 87116; 87430

== ENCOUNTER 2020-06-30 12:04 | Emergency (ER) | payer SELFPAY ==
[2020-06-30 12:17] VITALS: BP 120/72
[2020-06-30] MEDS ORDERED: FAMOTIDINE 20 MG TAB PO ONE (12:59)
[2020-06-30] MEDS ORDERED: ONDANSETRON 4 MG ODT TAB PO ONE (12:59)
[2020-06-30] MEDS ORDERED: ALUM-MAG HYDROXIDE-SIMETHICONE 200-200-20MG/5ML ORAL LIQD 30 ML PO ONE (12:59)
--- NOTE | 2020-06-30 13:01 | Event Note ---
ED Screening Note Date of service: 06/30/20 Time: 13:00 ED Screening Note: Patient complains of burning epigastric pain. Onset 3 days ago. She reports associated nausea and vomiting. She states that the burning pain goes up into her chest and she feels short of breath with it. She is status post cholecystectomy. This initial assessment/diagnostic orders/clinical plan/treatment(s) is/are subject to change based on patients health status, clinical progression and re- assessment by fellow clinical providers in the ED. Further treatment and workup at subsequent clinical providers discretion. Patient/guardian urged not to elope from the ED as their condition may be serious if not clinically assessed and managed. Initial orders include: Abdominal pain order set
--- NOTE | 2020-06-30 13:38 | Emergency Department Report ---
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 Hx gerd and gastritis and not taking her meds Endorses N/V; no diarrhea. No fever or chills. Ambulatory and non ill appearing in ACC. Taking PO Complaint: abdominal pain -: Gradual, days(s) Location: epigastric Radiation: none Improves With: nothing Worsens With: nothing Associated Symptoms: denies other symptoms - Related Data Previous Rx's Medication Instructions Recorded Last Taken Type Omeprazole [PriLOSEC] 20 mg PO QDAY #30 capsule. 08/07/15 Unknown Rx Sucralfate [Carafate] 1 gm PO Q6HR #120 tablet 02/03/17 Unknown Rx Esomeprazole Magnesium [NexIUM] 40 mg PO QDAY #30 capsule. 05/20/17 Unknown Rx Sucralfate 1 gm PO AC #120 tablet 05/20/17 Unknown Rx Omeprazole 20 mg PO QDAY #30 tablet. 07/06/17 Unknown Rx Omeprazole 20 mg PO DAILY #30 capsule. 06/30/20 Unknown Rx Allergies Allergy/AdvReac Type Severity Reaction Status Date / Time No Known Allergies Allergy Verified 07/16/19 07:38 ED Review of Systems ROS: Stated complaint: ABD PAIN Other details as noted in HPI Comment: All other systems reviewed and negative ED Past Medical Hx - Past Medical History Previous Medical History?: Yes Hx Heart Attack/AMI: No Additional medical history: Gastritis - Surgical History Past Surgical History?: Yes Hx Cholecystectomy: Yes Additional Surgical History: c-sec x 3 - Family History Family history: no significant - Social History Smoking Status: Never Smoker Substance Use Type: None - Medications Home Medications: Home Medications Medication Instructions Recorded Confirmed Last Taken Type Omeprazole [PriLOSEC] 20 mg PO QDAY #30 capsule. 08/07/15 Unknown Rx Sucralfate [Carafate] 1 gm PO Q6HR #120 tablet 02/03/17 Unknown Rx Esomeprazole Magnesium [NexIUM] 40 mg PO QDAY #30 capsule. 05/20/17 Unknown Rx Sucralfate 1 gm PO AC #120 tablet 05/20/17 Unknown Rx Omeprazole 20 mg PO QDAY #30 tablet. 07/06/17 Unknown Rx Omeprazole 20 mg PO DAILY #30 capsule. 06/30/20 Unknown Rx ED Physical Exam - General Limitations: No Limitations General appearance: alert, in no apparent distress - Head Head exam: Present: atraumatic, normocephalic - Eye Eye exam: Present: normal appearance - ENT ENT exam: Present: mucous membranes moist - Neck Neck exam: Present: normal inspection - Respiratory Respiratory exam: Present: normal lung sounds bilaterally. Absent: respiratory distress - Cardiovascular Cardiovascular Exam: Present: regular rate, normal rhythm. Absent: systolic murmur, diastolic murmur, rubs, gallop - GI/Abdominal GI/Abdominal exam: Present: soft, normal bowel sounds - Extremities Exam Extremities exam: Present: normal inspection - Back Exam Back exam: Present: normal inspection - Neurological Exam Neurological exam: Present: alert, oriented X3 - Psychiatric Psychiatric exam: Present: normal affect, normal mood - Skin Skin exam: Present: warm, dry, intact, normal color. Absent: rash ED Course Vital Signs 06/30/20 12:16 Temperature 98.3 F Pulse Rate 77 Respiratory 18 Rate Blood Pressure 120/72 O2 Sat by Pulse 100 Oximetry ED Medical Decision Making - Lab Data Result diagrams: 06/30/20 13:18 06/30/20 13:18 - Medical Decision Making Labs 06/30/20 06/30/20 06/30/20 13:18 13:18 13:18 Saline % (Auto) 11.4 H Eos % (Auto) 2.7 Saline # (Auto) 0.7 Eos # (Auto) 0.2 Baso # (Auto) 0.0 Seg Neutrophils % 67.6 Seg Neutrophils # 4.0 Sodium 138 Potassium 3.6 Chloride 105.1 Carbon Dioxide 27 Anion Gap 10 BUN 10 Creatinine 0.5 L Estimated GFR > 60 BUN/Creatinine Ratio 20 Glucose 95 Calcium 8.2 L Total Bilirubin 0.20 AST 18 ALT 16 Alkaline Phosphatase 81 Total Protein 7.2 Albumin 3.9 Albumin/Globulin Ratio 1.2 Lipase 34 Urine Bilirubin Urine RBC (Auto) U Epithel Cells (Auto) 06/30/20 Unknown Saline % (Auto) Eos % (Auto) Saline # (Auto) Eos # (Auto) Baso # (Auto) Seg Neutrophils % Seg Neutrophils # Sodium Potassium Chloride Carbon Dioxide Anion Gap BUN Creatinine Estimated GFR BUN/Creatinine Ratio Glucose Calcium Total Bilirubin AST ALT Alkaline Phosphatase Total Protein Albumin Albumin/Globulin Ratio Lipase Urine Bilirubin Neg Urine RBC (Auto) 2.0 U Epithel Cells (Auto) 2.0 Lab Results 06/30/20 06/30/20 06/30/20 Range/Units 13:18 13:18 13:18 Saline % (Auto) 11.4 H (0.0-7.3) % Eos % (Auto) 2.7 (0.0-4.3) % Saline # (Auto) 0.7 (0.0-0.8) K/mm3 Eos # (Auto) 0.2 (0.0-0.4) K/mm3 Baso # (Auto) 0.0 (0.0-0.1) K/mm3 Seg Neutrophils % 67.6 (40.0-70.0) % Seg Neutrophils # 4.0 (1.8-7.7) K/mm3 Sodium 138 (137-145) mmol/L Potassium 3.6 (3.6-5.0) mmol/L Chloride 105.1 (98-107) mmol/L Carbon Dioxide 27 (22-30) mmol/L Anion Gap 10 mmol/L BUN 10 (7-17) mg/dL Creatinine 0.5 L (0.6-1.2) mg/dL Estimated GFR > 60 ml/min BUN/Creatinine Ratio 20 % Glucose 95 (65-100) mg/dL Calcium 8.2 L (8.4-10.2) mg/dL Total Bilirubin 0.20 (0.1-1.2) mg/dL AST 18 (5-40) units/L ALT 16 (7-56) units/L Alkaline Phosphatase 81 (35-129) units/L Total Protein 7.2 (6.3-8.2) g/dL Albumin 3.9 (3.9-5) g/dL Albumin/Globulin Ratio 1.2 % Lipase 34 (13-60) units/L Urine Bilirubin (Negative) Urine RBC (Auto) (0.0-6.0) /HPF U Epithel Cells (Auto) (0-13.0) /HPF 06/30/20 Range/Units Unknown Saline % (Auto) (0.0-7.3) % Eos % (Auto) (0.0-4.3) % Saline # (Auto) (0.0-0.8) K/mm3 Eos # (Auto) (0.0-0.4) K/mm3 Baso # (Auto) (0.0-0.1) K/mm3 Seg Neutrophils % (40.0-70.0) % Seg Neutrophils # (1.8-7.7) K/mm3 Sodium (137-145) mmol/L Potassium (3.6-5.0) mmol/L Chloride (98-107) mmol/L Carbon Dioxide (22-30) mmol/L Anion Gap mmol/L BUN (7-17) mg/dL Creatinine (0.6-1.2) mg/dL Estimated GFR ml/min BUN/Creatinine Ratio % Glucose (65-100) mg/dL Calcium (8.4-10.2) mg/dL Total Bilirubin (0.1-1.2) mg/dL AST (5-40) units/L ALT (7-56) units/L Alkaline Phosphatase (35-129) units/L Total Protein (6.3-8.2) g/dL Albumin (3.9-5) g/dL Albumin/Globulin Ratio % Lipase (13-60) units/L Urine Bilirubin Neg (Negative) Urine RBC (Auto) 2.0 (0.0-6.0) /HPF U Epithel Cells (Auto) 2.0 (0-13.0) /HPF Vital Signs 06/30/20 12:16 Temperature 98.3 F Pulse Rate 77 Respiratory 18 Rate Blood Pressure 120/72 O2 Sat by Pulse 100 Oximetry pain relieved with gi cocktail; a/c issues no abd pain on palpitation taking po labs noted dc home with dc plan of care including follow up. Discharge instructions in set[place]ana. Pt verbalizes understanding of dc plan of care. - Differential Diagnosis gerd Critical care attestation.: If time is entered above; I have spent that time in minutes in the direct care of this critically ill patient, excluding procedure time. ED Disposition Clinical Impression: GERD (gastroesophageal reflux disease) Disposition: DC-01 TO HOME OR SELFCARE Is pt being admited?: No Does the pt Need Aspirin: No Condition: Stable Instructions: Gastroesophageal Reflux Disease, Adult, Oohd-ro-Ibcy, Abdominal Pain (ED) Prescriptions: Omeprazole 20 mg PO DAILY #30 capsule. Referrals: BERNIE MENDOZA MD [Staff Physician] - 3-5 Days MARCIAL JUÁREZ MD [Staff Physician] - 3-5 Days Time of Disposition: 14:45 Print Language: [place]
[2020-06-30 14:07] LABS: Basophils % (Auto) 0.7 % (0.0-1.8); Eosinophils # (Auto) 0.2 K/mm3 (0.0-0.4); Eosinophils % (Auto) 2.7 % (0.0-4.3); Hematocrit 34.4 % (30.3-42.9); Hemoglobin 11.4 gm/dl (10.1-14.3); Lymphocytes % (Auto) 17.6 % (13.4-35.0); Mean Corpuscular HGB Conc 33 % (30-34); Mean Corpuscular Volume 76 fl (79-97); Monocytes # (Auto) 0.7 K/mm3 (0.0-0.8); Monocytes % (Auto) 11.4 % (0.0-7.3); Platelet Count 311 K/mm3 (140-440); Red Blood Count 4.53 M/mm3 (3.65-5.03); Red Cell Distribution Width 14.9 % (13.2-15.2)
[2020-06-30 14:17] LABS: Alanine Aminotransferase 16 units/L (7-56); Albumin 3.9 g/dL (3.9-5); Blood Urea Nitrogen 10 mg/dL (7-17); Calcium 8.2 mg/dL (8.4-10.2); Hemolysis Index 7
[2020-06-30 14:23] LABS: BUN/Creatinine Ratio 20
[2020-06-30 14:27] LABS: Bilirubin,Urine NEG (Negative); Blood,Urine SM (Negative); Color,Urine Yellow (Yellow); Mucus,Urine FEW /HPF; Protein,Urine <15 mg/dL mg/dL (Negative); Urobilinogen,Urine < 2.0 mg/dL (<2.0)
== END 2020-06-30 14:58 | disposition home or self-care (01) ==
LOC: ED 12:04
DX: K21.9 Gastro-esophageal reflux disease without esophagitis (principal); Z90.49 Acquired absence of other specified parts of digestive tract; Z79.899 Other long term (current) drug therapy
CPT/HCPCS: 36415; 80053; 81001; 83690; 84703; 85025; 99283; Q0162

== ENCOUNTER 2020-10-13 08:45 | Emergency (ER) | payer SELFPAY ==
[2020-10-13 11:54] LABS: Basophils % (Auto) 0.7 % (0.0-1.8); Blood Urea Nitrogen 13 mg/dL (7-17); Calcium 8.4 mg/dL (8.4-10.2); Eosinophils # (Auto) 0.2 K/mm3 (0.0-0.4); Eosinophils % (Auto) 3.6 % (0.0-4.3); Hematocrit 35.4 % (30.3-42.9); Hemoglobin 11.5 gm/dl (10.1-14.3); Hemolysis Index 4; Lymphocytes # (Auto) 1.5 K/mm3 (1.2-5.4); Lymphocytes % (Auto) 31.2 % (13.4-35.0); Mean Corpuscular HGB Conc 33 % (30-34); Mean Corpuscular Volume 74 fl (79-97); Monocytes # (Auto) 0.6 K/mm3 (0.0-0.8); Monocytes % (Auto) 12.7 % (0.0-7.3); Platelet Count 368 K/mm3 (140-440); Red Cell Distribution Width 16.1 % (13.2-15.2)
[2020-10-13 12:00] LABS: Bilirubin,Urine NEG (Negative); Blood,Urine MOD (Negative); Color,Urine Yellow (Yellow); Mucus,Urine FEW /HPF; Protein,Urine <15 mg/dL mg/dL (Negative); Urobilinogen,Urine < 2.0 mg/dL (<2.0)
[2020-10-13 12:10] LABS: BUN/Creatinine Ratio 33
[2020-10-13 13:54] LABS: Alanine Aminotransferase 16 units/L (7-56); Albumin 4.2 g/dL (3.9-5)
[2020-10-13 15:19] VITALS: BP 132/92
[2020-10-13] MEDS ORDERED: ALUM-MAG HYDROXIDE-SIMETHICONE 200-200-20MG/5ML ORAL LIQD 30 ML PO ONE (16:54)
[2020-10-13] MEDS ORDERED: LIDOCAINE VISCOUS 2% 15 ML ORAL LIQD PO ONE (16:54)
[2020-10-13] MEDS ORDERED: ONDANSETRON 4 MG ODT TAB PO ONE (16:54)
[2020-10-13 17:03] LABS: HCG Qualitative,Urine Negative (Negative)
--- NOTE | 2020-10-13 17:03 | Emergency Department Report ---
HPI - General Chief Complaint: Abdominal Pain Time Seen by Provider: 10/13/20 16:05 - HPI HPI: This is a 40-year-old female presents to the emergency department with a complaint of some shortness of breath, generalized abdominal pain, and bilateral heel pain, that has been going on since yesterday. She has not taken anything for her symptoms prior to presentation. Patient has a past medical history of gastritis. She has a previous history of a cholecystectomy and has had C- section x3. Patient also has some associated nausea without vomiting. She says that she has not eaten much yesterday because of the nausea and abdominal discomfort. Currently she says it is 5 out of 10 in intensity and a burning pain. The heel pain feels like she is stepping on something. She denies any trauma. She denies any skin color change, swelling, rash, lesions. ED Past Medical Hx - Past Medical History Previous Medical History?: Yes Hx Heart Attack/AMI: No Additional medical history: Gastritis - Surgical History Past Surgical History?: Yes Hx Cholecystectomy: Yes Additional Surgical History: c-sec x 3 - Social History Smoking Status: Unknown if ever smoked - Medications Home Medications: Home Medications Medication Instructions Recorded Confirmed Last Taken Type Omeprazole [PriLOSEC] 20 mg PO QDAY #30 capsule. 08/07/15 Unknown Rx Esomeprazole Magnesium [NexIUM] 40 mg PO QDAY #30 capsule. 05/20/17 Unknown Rx Sucralfate 1 gm PO AC #120 tablet 05/20/17 Unknown Rx Omeprazole 20 mg PO QDAY #30 tablet. 07/06/17 Unknown Rx Ibuprofen [Motrin 800 MG tab] 800 mg PO Q8HR PRN #20 tablet 10/13/20 Unknown Rx Omeprazole 20 mg PO DAILY #30 capsule. 10/13/20 Unknown Rx Sucralfate [Carafate] 1 gm PO Q6HR #28 tab 10/13/20 Unknown Rx ED Review of Systems ROS: Stated complaint: ABD PAINS Other details as noted in HPI Comment: All other systems reviewed and negative Constitutional: denies: chills, fever Eyes: denies: eye pain, vision change ENT: denies: ear pain, throat pain Respiratory: shortness of breath. denies: cough Cardiovascular: denies: chest pain, palpitations Gastrointestinal: abdominal pain, nausea. denies: vomiting Genitourinary: denies: dysuria, discharge Musculoskeletal: arthralgia Skin: denies: rash, lesions Neurological: denies: numbness, paresthesias Physical Exam - Physical Exam Vital Signs: Vital Signs 10/13/20 09:51 Temperature 98.4 F Pulse Rate 71 Respiratory 18 Rate Blood Pressure 132/92 O2 Sat by Pulse 98 Oximetry Physical Exam: GENERAL: The patient is well-developed well-nourished. HENT: Normocephalic. Atraumatic. Patient has moist mucous membranes. EYES: Extraocular motions are intact. NECK: Supple. Trachea is midline. CHEST/LUNGS: Clear to auscultation. There is no respiratory distress noted. HEART/CARDIOVASCULAR: Regular. There is no tachycardia. There is no murmur. ABDOMEN: Abdomen is soft. Generalized abdominal tenderness to palpation. No guarding. Patient has normal bowel sounds. There is no abdominal distention. SKIN: Skin is warm and dry. NEURO: The patient is awake, alert, and oriented. The patient is cooperative. Normal speech. MUSCULOSKELETAL: There is some tenderness to palpation along the bilateral heels and Achilles, without any obvious deformity. There is no limitation range of motion. T ED Course Vital Signs 10/13/20 09:51 Temperature 98.4 F Pulse Rate 71 Respiratory 18 Rate Blood Pressure 132/92 O2 Sat by Pulse 98 Oximetry ED Medical Decision Making - Lab Data Result diagrams: 10/13/20 11:05 10/13/20 11:05 Lab Results 10/13/20 10/13/20 10/13/20 Range/Units 11:05 11:05 Unknown WBC 4.8 (4.5-11.0) K/mm3 RBC 4.80 (3.65-5.03) M/mm3 Hgb 11.5 (10.1-14.3) gm/dl Hct 35.4 (30.3-42.9) % MCV 74 L (79-97) fl MCH 24 L (28-32) pg MCHC 33 (30-34) % RDW 16.1 H (13.2-15.2) % Plt Count 368 (140-440) K/mm3 Lymph % (Auto) 31.2 (13.4-35.0) % Cassia % (Auto) 12.7 H (0.0-7.3) % Eos % (Auto) 3.6 (0.0-4.3) % Baso % (Auto) 0.7 (0.0-1.8) % Lymph # (Auto) 1.5 (1.2-5.4) K/mm3 Cassia # (Auto) 0.6 (0.0-0.8) K/mm3 Eos # (Auto) 0.2 (0.0-0.4) K/mm3 Baso # (Auto) 0.0 (0.0-0.1) K/mm3 Seg Neutrophils % 51.8 (40.0-70.0) % Seg Neutrophils # 2.5 (1.8-7.7) K/mm3 Sodium 137 (137-145) mmol/L Potassium 3.9 (3.6-5.0) mmol/L Chloride 104.2 (98-107) mmol/L Carbon Dioxide 24 (22-30) mmol/L Anion Gap 13 mmol/L BUN 13 (7-17) mg/dL Creatinine 0.4 L (0.6-1.2) mg/dL Estimated GFR > 60 ml/min BUN/Creatinine Ratio 33 % Glucose 94 (65-100) mg/dL Calcium 8.4 (8.4-10.2) mg/dL Total Bilirubin 0.30 (0.1-1.2) mg/dL AST 18 (5-40) units/L ALT 16 (7-56) units/L Alkaline Phosphatase 90 (35-129) units/L Total Protein 7.7 (6.3-8.2) g/dL Albumin 4.2 (3.9-5) g/dL Albumin/Globulin Ratio 1.2 % Urine Color Yellow (Yellow) Urine Turbidity Slightly-cloudy (Clear) Urine pH 5.0 (5.0-7.0) Ur Specific [place] 1.023 (1.003-1.030) Urine Protein <15 mg/dl (Negative) mg/dL Urine Glucose (UA) Neg (Negative) mg/dL Urine Ketones Neg (Negative) mg/dL Urine Blood Mod (Negative) Urine Nitrite Neg (Negative) Urine Bilirubin Neg (Negative) Urine Urobilinogen < 2.0 (<2.0) mg/dL Ur Leukocyte Esterase Neg (Negative) Urine WBC (Auto) 1.0 (0.0-6.0) /HPF Urine RBC (Auto) 2.0 (0.0-6.0) /HPF U Epithel Cells (Auto) 5.0 (0-13.0) /HPF Urine Mucus Few /HPF Urine HCG, Qual (Negative) 10/13/20 Range/Units Unknown WBC (4.5-11.0) K/mm3 RBC (3.65-5.03) M/mm3 Hgb (10.1-14.3) gm/dl Hct (30.3-42.9) % MCV (79-97) fl MCH (28-32) pg MCHC (30-34) % RDW (13.2-15.2) % Plt Count (140-440) K/mm3 Lymph % (Auto) (13.4-35.0) % Cassia % (Auto) (0.0-7.3) % Eos % (Auto) (0.0-4.3) % Baso % (Auto) (0.0-1.8) % Lymph # (Auto) (1.2-5.4) K/mm3 Cassia # (Auto) (0.0-0.8) K/mm3 Eos # (Auto) (0.0-0.4) K/mm3 Baso # (Auto) (0.0-0.1) K/mm3 Seg Neutrophils % (40.0-70.0) % Seg Neutrophils # (1.8-7.7) K/mm3 Sodium (137-145) mmol/L Potassium (3.6-5.0) mmol/L Chloride (98-107) mmol/L Carbon Dioxide (22-30) mmol/L Anion Gap mmol/L BUN (7-17) mg/dL Creatinine (0.6-1.2) mg/dL Estimated GFR ml/min BUN/Creatinine Ratio % Glucose (65-100) mg/dL Calcium (8.4-10.2) mg/dL Total Bilirubin (0.1-1.2) mg/dL AST (5-40) units/L ALT (7-56) units/L Alkaline Phosphatase (35-129) units/L Total Protein (6.3-8.2) g/dL Albumin (3.9-5) g/dL Albumin/Globulin Ratio % Urine Color (Yellow) Urine Turbidity (Clear) Urine pH (5.0-7.0) Ur Specific [place] (1.003-1.030) Urine Protein (Negative) mg/dL Urine Glucose (UA) (Negative) mg/dL Urine Ketones (Negative) mg/dL Urine Blood (Negative) Urine Nitrite (Negative) Urine Bilirubin (Negative) Urine Urobilinogen (<2.0) mg/dL Ur Leukocyte Esterase (Negative) Urine WBC (Auto) (0.0-6.0) /HPF Urine RBC (Auto) (0.0-6.0) /HPF U Epithel Cells (Auto) (0-13.0) /HPF Urine Mucus /HPF Urine HCG, Qual Negative (Negative) - Radiology Data Radiology results: image reviewed interpreted by me: Chest x-ray does not show any acute process. There are no pleural effusions, obvious pneumonia and there is no pneumothorax. No widened mediastinum. Abdominal x-ray shows nonspecific nonobstructive bowel gas. No free air. - Medical Decision Making This patient presents to the emergency department with a complaint of some abdominal discomfort, shortness of breath, and bilateral heel pain. The heel pain appears most consistent with plantar fasciitis. She has tenderness to palpation over the heel and up into the Achilles. No trauma. No obvious deformity. No skin color change, rash, swelling, lesions. As there was no trauma or deformity, I did not feel that the patient required x-ray imaging at this time. She will be given an outpatient referral for podiatry. The patient has reproducible generalized abdominal tenderness to palpation. No guarding. The abdomen is soft, nondistended and nontoxic in appearance. Abdominal x-ray shows nonspecific nonobstructive bowel gas and no free air. The patient had complaints of some shortness of breath but the heart and lung sounds are normal to auscultation and the patient does not appear in any respir atory or acute distress. Chest x-ray does not show any pneumonia, pleural effusions, pneumothorax, widened mediastinum, or any other acute processes. Labs are unremarkable including CBC, metabolic panel, urinalysis, and the patient is not . She was given a GI cocktail and upon reevaluation says she is feeling greatly improved in terms of her abdominal discomfort. Vital signs reassuring throughout her ED course. For all these reasons the patient appears safe for discharge home at this time. She has been given an outpatient referral for primary care, and podiatry. She will return to the emergency department with any worsening of her symptoms or with any acute distress. Critical Care Time: No Critical care attestation.: If time is entered above; I have spent that time in minutes in the direct care of this critically ill patient, excluding procedure time. ED Disposition Clinical Impression: Plantar fasciitis, Shortness of breath Abdominal pain Qualifiers: Abdominal location: generalized Qualified Code(s): R10.84 - Generalized abdominal pain GERD (gastroesophageal reflux disease) Qualifiers: Esophagitis presence: esophagitis presence not specified Qualified Code(s): K21.9 - Gastro-esophageal reflux disease without esophagitis Disposition: TO HOME OR SELFCARE Is pt being admited?: No Condition: Stable Instructions: Abdominal Pain, Adult, Food Choices for Gastroesophageal Reflux Disease, Adult, Shortness of Breath, Adult, Plantar Fasciitis, Gastroesophageal Reflux Disease, Adult, Abdominal Pain (ED) Additional Instructions: Please follow-up with a primary care physician in the next few days. I have given you a referral for a local primary care physician, Dr. Bee, and a primary care clinic, [facility]. I am giving you a referral for a local test puller, Dr. Corley, to follow-up regarding your bilateral foot/heel pain. Return to the emergency department with any worsening of your symptoms, new or concerning symptoms not addressed during this current emergency department visit, or with any acute distress. Prescriptions: Sucralfate [Carafate] 1 gm PO Q6HR #28 tab Ibuprofen [Motrin 800 MG tab] 800 mg PO Q8HR PRN #20 tablet PRN Reason: Pain , Severe (7-10) Omeprazole 20 mg PO DAILY #30 capsule. Referrals: JAYMIE AMANDA MD [Primary Care Provider] - 3-5 Days BERNIE BEE MD [Staff Physician] - 3-5 Days MARVIN CORLEY DPM [Staff Physician] - 3-5 Days [facility] [Provider Group] - 3-5 Days Forms: Work/School Release Form(ED) Time of Disposition: 18:11 Print Language: MONTSERRATIAN
--- NOTE | 2020-10-13 17:30 | XRay Report ---
ABDOMEN SERIES WITH ONE VIEW CHEST INDICATION / CLINICAL INFORMATION: Abd pain, SOB. COMPARISON: None available. FINDINGS: TUBES / LINES: None. BOWEL GAS PATTERN: No significant abnormality. FREE AIR / EXTRALUMINAL GAS: None seen. ADDITIONAL FINDINGS: No significant additional findings. LUNGS: Visualized lungs show no significant abnormality. IMPRESSION: 1. No significant abnormality. Signer Name: Axel Slater MD Signed: 10/13/2020 5:25 PM Workstation Name: [id number]
--- NOTE | 2020-10-14 10:11 | Electrocardiograph Report ---
[facility] Test Date: 2020-10-13 Test Time: 10:04:59 Pat Name: JOSY VILLAR Department: Room: Gender: F [employer] Supervisor: MANUEL : 1980 Requested By: ADIEL TUTTLE Order Number: [id number] Reading MD: Gideon Mccauley Measurements Intervals [place] Rate: 65 P: 17 NM: 163 QRS: 31 QRSD: 101 T: 24 QT: 437 QTc: 454 Interpretive Statements Sinus rhythm No previous ECG available for comparison Electronically Signed On 10-14-2020 10:11:05 EDT by Gideon Mccauley
== END 2020-10-13 19:04 | disposition home or self-care (01) ==
LOC: ED 08:45
DX: K21.9 Gastro-esophageal reflux disease without esophagitis (principal); M72.2 Plantar fascial fibromatosis; R06.02 Shortness of breath; R10.84 Generalized abdominal pain; Z90.49 Acquired absence of other specified parts of digestive tract; Z98.890 Other specified postprocedural states; Z79.899 Other long term (current) drug therapy
CPT/HCPCS: 36415; 74022; 80053; 81001; 81025; 85025; 93005; Q0162

== ENCOUNTER 2020-12-04 14:16 | Emergency (ER) | payer SELFPAY ==
[2020-12-04] MEDS ORDERED: BENZONATATE 100 MG CAP PO ONE (15:12)
[2020-12-04] MEDS ORDERED: ACETAMINOPHEN 500 MG TAB PO ONE (15:12)
--- NOTE | 2020-12-04 15:51 | XRay Report ---
CHEST 2 VIEWS INDICATION / CLINICAL INFORMATION: cough. COMPARISON: Acute abdominal series dated 10/13/2020. FINDINGS: SUPPORT DEVICES: None. HEART / MEDIASTINUM: No significant abnormality. LUNGS / PLEURA: No significant pulmonary abnormality. No significant pleural effusion. No pneumothora x. ADDITIONAL FINDINGS: No significant additional findings. IMPRESSION: 1. No acute abnormality of the chest. Signer Name: Paul Galindo MD Signed: 12/04/2020 3:46 PM Workstation Name: [id number]
--- NOTE | 2020-12-04 17:35 | Emergency Department Report ---
- General Chief Complaint: Pain General Stated Complaint: HEADACHE,BODYACHES Time Seen by Provider: 12/04/20 15:01 Source: patient Mode of arrival: Ambulatory Limitations: No Limitations - History of Present Illness Initial Comments: This is a 40-year-old female nontoxic, well nourished in appearance, no acute signs of distress presents to the ED with c/o of productive cough, fever, chills, body aches, loss of taste and smell, sinus pains, rhinorrhea, nasal congestion x several days. Patient describes productive cough as yellow mucus production. Patient agrees to sick contact with son with similar symptoms. Denies being COVID vaccinated. Patient denies any recent travels, long car, recent hospital stays. Patient denies any calf pain or calf tenderness. Patient denies any chest pain, short of breath, fever, chills, nausea, vomiting, hemoptysis, numbness, tingling, headache or stiff neck. Denies any allergies or PMH. Jemima Libyan translation has been used throughout physical exam, interviews, treatment and disposition. MD Complaint: fever, cough, sore throat, rhinorrhea, nasal congestion, sinus pain -: days(s) Severity: mild Severity scale (0 -10): 3 Quality: aching Consistency: constant Improves With: nothing Worsens With: nothing Context: sick contacts Associated Symptoms: fever, chills, rhinorrhea, nasal congestion, sore throat, cough. denies: myalgias, diaphoresis, headache, stiff neck, chest pain, shortness of breath, abdominal pain, nausea, vomiting, diarrhea, dysuria, rash, confusion, right sweats, weight loss, epistaxis, hoarseness, ear pain Treatments Prior to Arrival: none - Related Data Previous Rx's Medication Instructions Recorded Last Taken Type Omeprazole [PriLOSEC] 20 mg PO QDAY #30 capsule. 08/07/15 Unknown Rx Esomeprazole Magnesium [NexIUM] 40 mg PO QDAY #30 capsule. 05/20/17 Unknown Rx Sucralfate 1 gm PO AC #120 tablet 05/20/17 Unknown Rx Omeprazole 20 mg PO QDAY #30 tablet. 07/06/17 Unknown Rx Ibuprofen [Motrin 800 MG tab] 800 mg PO Q8HR PRN #20 tablet 10/13/20 Unknown Rx Omeprazole 20 mg PO DAILY #30 capsule. 10/13/20 Unknown Rx Sucralfate [Carafate] 1 gm PO Q6HR #28 tab 10/13/20 Unknown Rx Acetaminophen [Acetaminophen 8 650 mg PO Q8H PRN #12 tablet.er 12/04/20 Unknown Rx Hour] Azithromycin [Zithromax Z-JUSTIN] 250 mg PO DAILY #6 tablet 12/04/20 Unknown Rx Benzonatate [Tessalon Perles] 100 mg PO Q8HR PRN #12 capsule 12/04/20 Unknown Rx Nystas/Diphen/Xyl Visc/Mylanta 30 ml MM Q8H PRN 5 Days #1 bottle 12/04/20 Unknown Rx [Magic Mouthwash] Allergies Allergy/AdvReac Type Severity Reaction Status Date / Time No Known Allergies Allergy Verified 07/16/19 07:38 ED Review of Systems ROS: Stated complaint: HEADACHE,BODYACHES Other details as noted in HPI Comment: All other systems reviewed and negative Constitutional: chills, fever Eyes: denies: eye pain, eye discharge, vision change ENT: congestion. denies: ear pain, throat pain Respiratory: cough. denies: shortness of breath, wheezing Cardiovascular: denies: chest pain, palpitations Endocrine: no symptoms reported Gastrointestinal: denies: abdominal pain, nausea, vomiting, diarrhea Genitourinary: denies: urgency, dysuria, discharge Musculoskeletal: denies: back pain, joint swelling, arthralgia Skin: denies: rash, lesions Neurological: denies: headache, weakness, paresthesias Psychiatric: denies: anxiety, depression Hematological/Lymphatic: denies: easy bleeding, easy bruising ED Past Medical Hx - Past Medical History Previous Medical History?: No Hx Heart Attack/AMI: No Additional medical history: Gastritis - Surgical History Past Surgical History?: Yes Hx Cholecystectomy: Yes Additional Surgical History: c-sec x 3 - Social History Smoking Status: Unknown if ever smoked - Medications Home Medications: Home Medications Medication Instructions Recorded Confirmed Last Taken Type Omeprazole [PriLOSEC] 20 mg PO QDAY #30 capsule. 08/07/15 Unknown Rx Esomeprazole Magnesium [NexIUM] 40 mg PO QDAY #30 capsule. 05/20/17 Unknown Rx Sucralfate 1 gm PO AC #120 tablet 05/20/17 Unknown Rx Omeprazole 20 mg PO QDAY #30 tablet. 07/06/17 Unknown Rx Ibuprofen [Motrin 800 MG tab] 800 mg PO Q8HR PRN #20 tablet 10/13/20 Unknown Rx Omeprazole 20 mg PO DAILY #30 capsule. 10/13/20 Unknown Rx Sucralfate [Carafate] 1 gm PO Q6HR #28 tab 10/13/20 Unknown Rx Acetaminophen [Acetaminophen 8 650 mg PO Q8H PRN #12 tablet.er 12/04/20 Unknown Rx Hour] Azithromycin [Zithromax Z-JUSTIN] 250 mg PO DAILY #6 tablet 12/04/20 Unknown Rx Benzonatate [Tessalon Perles] 100 mg PO Q8HR PRN #12 capsule 12/04/20 Unknown Rx Nystas/Diphen/Xyl Visc/Mylanta 30 ml MM Q8H PRN 5 Days #1 bottle 12/04/20 Unknown Rx [Magic Mouthwash] ED Physical Exam - General Limitations: No Limitations General appearance: alert, in no apparent distress - Head Head exam: Present: atraumatic, normocephalic - Eye Eye exam: Present: normal appearance - Expanded ENT Exam Expanded Ear exam: Present: normal external inspection Mouth exam: Present: normal external inspection, tongue normal. Absent: drooling, trismus, muffled voice Throat exam: Positive: tonsillar erythema, other (uvula midline). Negative: tonsillomegaly, tonsillar exudate, R peritonsillar mass, L peritonsillar mass - Neck Neck exam: Present: normal inspection, full ROM. Absent: tenderness, meningismus, lymphadenopathy - Respiratory Respiratory exam: Present: normal lung sounds bilaterally. Absent: respiratory distress, wheezes, rales, rhonchi, stridor, chest wall tenderness, accessory muscle use, decreased breath sounds, prolonged expiratory - Cardiovascular Cardiovascular Exam: Present: normal rhythm, tachycardia, normal heart sounds. Absent: irregular rhythm, systolic murmur, diastolic murmur, rubs, gallop - GI/Abdominal GI/Abdominal exam: Present: soft. Absent: distended, tenderness - Extremities Exam Extremities exam: Present: normal inspection, full ROM - Back Exam Back exam: Present: normal inspection, full ROM. Absent: tenderness, CVA tenderness (R), CVA tenderness (L), muscle spasm, paraspinal tenderness, vertebral tenderness, rash noted - Neurological Exam Neurological exam: Present: alert, oriented X3, normal gait - Expanded Neurological Exam Expanded Patient oriented to: Present: person, place, time Cranial nerves: EOM's Intact: Normal Cerebellar function: Finger to Nose: Normal Upper motor neuron: Pronator Drift: Normal, Sensory Extinction: Normal Motor strength exam: RUE: 5, LUE: 5, RLE: 5, LLE: 5 Best Eye Response ([place]): (4) open spontaneously Best Motor Response ([place]): (6) obeys commands Best Verbal Response ([place]): (5) oriented Greta Total: 15 - Psychiatric Psychiatric exam: Present: normal affect, normal mood - Skin Skin exam: Present: warm, dry, intact, normal color. Absent: rash - Other Other exam information: Positive sinus tenderness on exam. ED Course Vital Signs 12/04/20 12/04/20 14:39 17:55 Temperature 100.1 F H 98.7 F Pulse Rate 99 H 92 H Respiratory 19 18 Rate Blood Pressure 122/79 Blood Pressure 127/78 [Right] O2 Sat by Pulse 99 99 Oximetry - Reevaluation(s) Reevaluation #1: 12/04/20 17:37 Patient is speaking in full sentences with no signs of distress noted. ED Medical Decision Making - Lab Data Lab Results 12/04/20 Range/Units 15:12 Group A Strep Rapid Negative (Negative) - Radiology Data [facility] [address] [place] [address] XRay Report Signed Patient: JOSY VILLAR MR#: [id number] : 1980 Acct:[id number] Age/Sex: 40 / F ADM Date: 12/04/20 Loc: ED Attending Dr: Ordering Physician: YOSSI MCKEON NP Date of Service: 12/04/20 Procedure(s): XR chest routine 2V Accession Number(s): [id number] cc: YOSSI MCKEON NP Fluoro Time In Minutes: CHEST 2 VIEWS INDICATION / CLINICAL INFORMATION: cough. COMPARISON: Acute abdominal series dated 10/13/2020. FINDINGS: SUPPORT DEVICES: None. HEART / MEDIASTINUM: No significant abnormality. LUNGS / PLEURA: No significant pulmonary abnormality. No significant pleural effusion. No pneumothorax. ADDITIONAL FINDINGS: No significant additional findings. IMPRESSION: 1. No acute abnormality of the chest. Signer Name: Paul Galindo MD Signed: 12/04/2020 3:46 PM Workstation Name: [id number] Transcribed By: MN Dictated By: Paul Galindo MD Electronically Authenticated By: Paul Galindo MD Signed Date/Time: 12/04/201545 DD/ 45 TD/TT: - Medical Decision Making This is a 40-year-old female that presents with suspected COVID with sinsutitis. Patient is stable and was examined by me. Chest x-ray has been obtained and dictated by radiologist with normal exam. Patient is notified of x-ray results with no questions noted. Patient does meet clinical concerns of COVID-19 and patient was instructed and educated on signs and symptoms and to self quarantine and seek medical attention as soon as possible if symptoms wrosen and continue. I will discharge patient with Zpak. Patient was instructed to increase hydration, rest and take Tylenol for fever episodes. Patient received Tylenol and tesslone perrls in the ED. Vitals stable. Patient is nonfebrile and normal heart rate. Patient was instructed Follow-up with a primary care doctor in 3-5 days or if symptoms worsen and continue return to emergency room as soon as possible. At time time of discharge, the patient does not seem toxic or ill in appearance. No acute signs of distress noted. Patient agrees to discharge treatment plan of care. No further questions noted by the patient.nt. Jemima Libyan translation has been used throughout physical exam, interviews, treatment and disposition. Critical care attestation.: If time is entered above; I have spent that time in minutes in the direct care of this critically ill patient, excluding procedure time. ED Disposition Clinical Impression: Suspected COVID-19 virus infection, Viral pharyngitis Sinusitis Qualifiers: Sinusitis location: maxillary Chronicity: acute Recurrence: non-recurrent Qualified Code(s): J01.00 - Acute maxillary sinusitis, unspecified Disposition: HOME / SELF CARE / HOMELESS Is pt being admited?: No Does the pt Need Aspirin: No Condition: Stable Instructions: COVID-19 Frequently Asked Questions, COVID-19, Sinusitis, Adult, [id number] Additional Instructions: Follow-up with a primary care doctor in 3-5 days or if symptoms worsen and continue return to emergency room as soon as possible. Increased rest, hydration, and take Motrin/Tylenol as prescribed for fever episode. Please see your nearest health department or primary care doctor that you are referred to for COVID testing. Increased rest, hydration, and take Tylenol as prescribed for fever episode. Prescriptions: Acetaminophen [Acetaminophen 8 Hour] 650 mg PO Q8H PRN #12 tablet.er PRN Reason: Fever >101 Nystas/Diphen/Xyl Visc/Mylanta [Magic Mouthwash] 30 ml MM Q8H PRN 5 Days #1 bottle PRN Reason: Sore Throat Benzonatate [Tessalon Perles] 100 mg PO Q8HR PRN #12 capsule PRN Reason: Cough Azithromycin [Zithromax Z-JUSTIN] 250 mg PO DAILY #6 tablet Referrals: PRIMARY CAREMD [Primary Care Provider] - 3-5 Days BERNIE MENDOZA MD [Staff Physician] - 3-5 Days Time of Disposition: 17:45 Print Language: YAKUT
[2020-12-04 17:56] VITALS: BP 127/78
== END 2020-12-04 18:10 | disposition home or self-care (01) ==
LOC: ED 14:16
DX: J32.9 Chronic sinusitis, unspecified (principal); J02.9 Acute pharyngitis, unspecified; Z20.822 Contact with and (suspected) exposure to COVID-19; Z79.899 Other long term (current) drug therapy; Z90.49 Acquired absence of other specified parts of digestive tract; Z98.890 Other specified postprocedural states
CPT/HCPCS: 71046; 87116; 87430

== ENCOUNTER 2021-04-14 19:19 | Emergency (ER) | payer SELFPAY ==
--- NOTE | 2021-04-14 20:28 | Emergency Department Report ---
ED General Adult HPI - General Chief complaint: Pain General Stated complaint: BODY ACHES/UMANA Time Seen by Provider: 04/14/21 20:24 - History of Present Illness Initial comments: Patient presents with muscle aches, body aches, headache, fevers, chills, nausea, vomiting, and generalized malaise. Symptoms been present for the last 2 days. She has had no known coronavirus exposure. She was not vaccinated for coronavirus or the flu. Patient has no rash. She states she just does not feel well. She came in because of the symptoms. Cough has been producing a yellowish phlegm. There is no hemoptysis. She has no hematemesis or hematuria. - Related Data Previous Rx's Medication Instructions Recorded Last Taken Type Omeprazole [PriLOSEC] 20 mg PO QDAY #30 capsule. 08/07/15 Unknown Rx Esomeprazole Magnesium [NexIUM] 40 mg PO QDAY #30 capsule. 05/20/17 Unknown Rx Sucralfate 1 gm PO AC #120 tablet 05/20/17 Unknown Rx Omeprazole 20 mg PO QDAY #30 tablet. 07/06/17 Unknown Rx Omeprazole 20 mg PO DAILY #30 capsule. 10/13/20 Unknown Rx Sucralfate [Carafate] 1 gm PO Q6HR #28 tab 10/13/20 Unknown Rx Acetaminophen [Acetaminophen 8 650 mg PO Q8H PRN #12 tablet.er 12/04/20 Unknown Rx Hour] Nystas/Diphen/Xyl Visc/Mylanta 30 ml MM Q8H PRN 5 Days #1 bottle 12/04/20 Unknown Rx [Magic Mouthwash] Benzonatate [Tessalon Perles] 100 mg PO Q8HR PRN #12 capsule 04/14/21 Unknown Rx Ibuprofen [Motrin 800 MG tab] 800 mg PO Q8HR PRN #20 tablet 04/14/21 Unknown Rx Ondansetron [Zofran ODT TAB] 8 mg PO Q8HR PRN #20 tab.rapdis 04/14/21 Unknown Rx Allergies Allergy/AdvReac Type Severity Reaction Status Date / Time No Known Allergies Allergy Verified 07/16/19 07:38 ED Review of Systems ROS: Stated complaint: BODY ACHES/UMANA Other details as noted in HPI Comment: All other systems reviewed and negative Constitutional: see HPI Eyes: denies: eye pain ENT: denies: epistaxis Respiratory: see HPI Cardiovascular: denies: chest pain Gastrointestinal: as per HPI Genitourinary: denies: dysuria Musculoskeletal: as per HPI Skin: denies: rash Neurological: as per HPI Hematological/Lymphatic: denies: easy bruising ED Past Medical Hx - Past Medical History Hx Heart Attack/AMI: No Additional medical history: Gastritis - Surgical History Hx Cholecystectomy: Yes Additional Surgical History: c-sec x 3 - Family History Family history: no significant - Social History Smoking Status: Unknown if ever smoked - Medications Home Medications: Home Medications Medication Instructions Recorded Confirmed Last Taken Type Omeprazole [PriLOSEC] 20 mg PO QDAY #30 capsule. 08/07/15 Unknown Rx Esomeprazole Magnesium [NexIUM] 40 mg PO QDAY #30 capsule. 05/20/17 Unknown Rx Sucralfate 1 gm PO AC #120 tablet 05/20/17 Unknown Rx Omeprazole 20 mg PO QDAY #30 tablet. 07/06/17 Unknown Rx Omeprazole 20 mg PO DAILY #30 capsule. 10/13/20 Unknown Rx Sucralfate [Carafate] 1 gm PO Q6HR #28 tab 10/13/20 Unknown Rx Acetaminophen [Acetaminophen 8 650 mg PO Q8H PRN #12 tablet.er 12/04/20 Unknown Rx Hour] Nystas/Diphen/Xyl Visc/Mylanta 30 ml MM Q8H PRN 5 Days #1 bottle 12/04/20 Unknown Rx [Magic Mouthwash] Benzonatate [Tessalon Perles] 100 mg PO Q8HR PRN #12 capsule 04/14/21 Unknown Rx Ibuprofen [Motrin 800 MG tab] 800 mg PO Q8HR PRN #20 tablet 04/14/21 Unknown Rx Ondansetron [Zofran ODT TAB] 8 mg PO Q8HR PRN #20 tab.rapdis 04/14/21 Unknown Rx ED Physical Exam - General Limitations: No Limitations, Other (Pulse ox was noted and normal) General appearance: alert, in no apparent distress - Head Head exam: Present: atraumatic, normocephalic - Eye Eye exam: Present: normal appearance, EOMI - ENT ENT exam: Present: normal orophraynx, normal external ear exam - Neck Neck exam: Present: normal inspection. Absent: meningismus - Respiratory Respiratory exam: Present: normal lung sounds bilaterally. Absent: respiratory distress - Cardiovascular Cardiovascular Exam: Present: regular rate, normal rhythm - GI/Abdominal GI/Abdominal exam: Present: soft. Absent: tenderness - Extremities Exam Extremities exam: Present: normal capillary refill - Back Exam Back exam: Present: full ROM - Neurological Exam Neurological exam: Present: alert, oriented X3, CN II-XII intact, normal gait. Absent: motor sensory deficit - Psychiatric Psychiatric exam: Present: normal affect, normal mood - Skin Skin exam: Present: warm, dry ED Course Vital Signs 04/14/21 20:15 Temperature 98.8 F Pulse Rate 85 Respiratory 18 Rate Blood Pressure 123/66 [Right] O2 Sat by Pulse 100 Oximetry - Reevaluation(s) Reevaluation #1: 04/14/21 20:49 Patient was discharged ED Medical Decision Making - Medical Decision Making Patient presented with a viral constellation of symptoms. She certainly does not have meningitis on exam. There are no adventitious breath sounds to suggest pneumonia. She has no CVA tenderness though suggest pyelonephritis. Patient is drinking Sprite here and not vomiting. She appears to be dehydrated clinically with moist mucous membranes. Abdomen is soft without tenderness, rebound, guarding, or mass per there is no peritonitis. I suspect that she likely has COVID. She was treated symptomatically and referred for outpatient evaluation. Critical Care Time: No Critical care attestation.: If time is entered above; I have spent that time in minutes in the direct care of this critically ill patient, excluding procedure time. ED Disposition Clinical Impression: Viral URI, Myalgia Nausea & vomiting Qualifiers: Vomiting type: unspecified Qualified Code(s): R11.2 - Nausea with vomiting, unspecified Disposition: HOME / SELF CARE / HOMELESS Is pt being admited?: No Condition: Stable Instructions: Viral Respiratory Infection, [id number], Nausea and Vomiting, Adult, Musculoskeletal Pain, Viral Respiratory Infection Test Additional Instructions: drink water. use tylenol for fever. return for problems. see your doctor for recheck. Prescriptions: Ibuprofen [Motrin 800 MG tab] 800 mg PO Q8HR PRN #20 tablet PRN Reason: Pain , Severe (7-10) Benzonatate [Tessalon Perles] 100 mg PO Q8HR PRN #12 capsule PRN Reason: Cough Ondansetron [Zofran ODT TAB] 8 mg PO Q8HR PRN #20 tab.rapdis PRN Reason: Nausea Referrals: PRIMARY CARE, [Primary Care Provider] - 3-5 Days
[2021-04-14 20:47] VITALS: BP 123/66
== END 2021-04-14 21:20 | disposition home or self-care (01) ==
LOC: ED 19:19
DX: J06.9 Acute upper respiratory infection, unspecified (principal); M79.10 Myalgia, unspecified site; R11.2 Nausea with vomiting, unspecified; R51.9 Headache, unspecified
CPT/HCPCS: 99282

== ENCOUNTER 2021-06-27 11:03 | Emergency (ER) | payer SELFPAY ==
--- NOTE | 2021-06-27 11:35 | Emergency Department Report ---
Minor Respiratory - HPI Chief Complaint: Sore Throat Stated Complaint: HEAD/THROAT/CHEST/ARM Time Seen by Provider: 06/27/21 11:28 Duration: 3 Days Pain Location: Throat, Chest Severity: mild Minor Respiratory: Yes Sore Throat, Yes Able to Tolerate Fluids, Yes Cough, No Rhinorrhea, No Ear Pain, No Sick Contacts, No Hemoptysis, No Chest Pain, No Shortness of Breath, No Fever Other History: Patient is a 40-year-old female that comes to the emergency room complaining of shortness of breath and congestion for 3 days. Cow Tender used for her exam. On arrival patient ambulatory, nonill nontoxic and afebrile. ED Review of Systems ROS: Stated complaint: HEAD/THROAT/CHEST/ARM Other details as noted in HPI Comment: All other systems reviewed and negative ED Past Medical Hx - Past Medical History Previous Medical History?: Yes Hx Heart Attack/AMI: No Additional medical history: Gastritis - Surgical History Past Surgical History?: Yes Hx Cholecystectomy: Yes Additional Surgical History: c-sec x 3 - Family History Family history: no significant - Social History Smoking Status: Never Smoker Substance Use Type: None - Medications Home Medications: Home Medications Medication Instructions Recorded Confirmed Last Taken Type Esomeprazole Magnesium [NexIUM] 40 mg PO QDAY #30 capsule. 05/20/17 Unknown Rx Sucralfate 1 gm PO AC #120 tablet 05/20/17 Unknown Rx Omeprazole 20 mg PO DAILY #30 capsule. 10/13/20 Unknown Rx Sucralfate [Carafate] 1 gm PO Q6HR #28 tab 10/13/20 Unknown Rx Nystas/Diphen/Xyl Visc/Mylanta 30 ml MM Q8H PRN 5 Days #1 bottle 12/04/20 Unknown Rx [Magic Mouthwash] Amoxicillin [Trimox CAP] 500 mg PO BID #20 capsule 06/27/21 Unknown Rx Minor Respiratory Exam - Exam General: Vital signs noted. No distress. Alert and acting appropriately. HEENT: Yes Pharyngeal Erythema, Yes Moist Mucous Membranes, No Pharyngeal Exudates, No Rhinorrhea, No Conjuctival Injection, No Frontal Tenderness, No Maxillary Tenderness Ear: Neither TM Bulge, Neither TM Erythema, Neither EAC Pain, Neither EAC Discharge Neck: Yes Supple, No Adenopathy Lungs: Yes Good Air Exchange, No Wheezes, No Ronchi, No Stridor, No Cough, No Labored Respirations, No Retractions, No Use of Accessory Muscles, No Other Abnormal Lung Sounds Heart: Yes Regular, No Murmur Abdomen: Yes Normal Bowel Sounds, No Tenderness, No Peritoneal Signs Skin: No Rash, No Edema Neurologic: Alert and oriented, no deficits. Musculoskeletal: Unremarkable. ED Course Vital Signs 06/27/21 11:26 Temperature 98.0 F Pulse Rate 95 H Respiratory 16 Rate Blood Pressure 132/71 O2 Sat by Pulse 97 Oximetry ED Medical Decision Making - Radiology Data Radiology results: report reviewed, image reviewed nap - Medical Decision Making xray nap Vital Signs 06/27/21 11:26 Temperature 98.0 F Pulse Rate 95 H Respiratory 16 Rate Blood Pressure 132/71 O2 Sat by Pulse 97 Oximetry Vital signs are normal. Patient educated on discharge plan of care including diet, activity, meds and follow-up. She verbalizes understanding. On discharge patient ambulatory, nontoxic [id number]. She is taking p.o. - Differential Diagnosis uri; ro pna Critical care attestation.: If time is entered above; I have spent that time in minutes in the direct care of this critically ill patient, excluding procedure time. ED Disposition Clinical Impression: URI (upper respiratory infection) Qualifiers: URI type: unspecified URI Qualified Code(s): J06.9 - Acute upper respiratory infection, unspecified Disposition: 01 HOME / SELF CARE / HOMELESS Is pt being admited?: No Does the pt Need Aspirin: No Condition: Stable Instructions: Upper Respiratory Infection, Adult, [id number] Additional Instructions: meds as ordered follow up with pcp in 48 hours for recheck referral below stay well hydrated tylenol or motrin for fever or pain continue your home meds for your GERD Prescriptions: Amoxicillin [Trimox CAP] 500 mg PO BID #20 capsule Referrals: BERNIE MENDOZA MD [Primary Care Provider] - 3-5 Days Time of Disposition: 11:55
[2021-06-27 12:51] VITALS: BP 126/76
--- NOTE | 2021-06-27 13:08 | XRay Report ---
CHEST 2 VIEWS INDICATION / CLINICAL INFORMATION: Shortness of breath. COMPARISON: 12/04/2020 FINDINGS: SUPPORT DEVICES: None. HEART / MEDIASTINUM: No significant abnormality. LUNGS / PLEURA: No significant pulmonary or pleural abnormality. No pneumothorax. ADDITIONAL FINDINGS: No significant additional findings. IMPRESSION: 1. No acute findings. Signer Name: Axel Slater MD Signed: 06/27/2021 1:03 PM Workstation Name: [id number]
== END 2021-06-27 12:59 | disposition home or self-care (01) ==
LOC: ED 11:03
DX: J06.9 Acute upper respiratory infection, unspecified (principal); Z90.49 Acquired absence of other specified parts of digestive tract
CPT/HCPCS: 71046; 99283

== ENCOUNTER 2021-08-23 13:30 | Emergency (ER) | payer SELFPAY ==
--- NOTE | 2021-08-23 16:35 | Event Note ---
ED Screening Note ED Screening Note: pain l hip p getting hit with fork lift at work yest ambulatory setswana speaking This initial assessment/diagnostic orders/clinical plan/treatment(s) is/are subject to change based on patients health status, clinical progression and re- assessment by fellow clinical providers in the ED. Further treatment and workup at subsequent clinical providers discretion. Patient/guardian urged not to elope from the ED as their condition may be serious if not clinically assessed and managed. Initial orders include: xr
--- NOTE | 2021-08-23 17:05 | XRay Report ---
XR hip 2-3V RT INDICATION / CLINICAL INFORMATION: pain sp fall. COMPARISON: None available. FINDINGS: No acute fracture. Normal alignment. Joint spaces are preserved. No destructive osseous lesion or s uspicious periosteal reaction. Impression: 1.No acute fracture. Signer Name: Matt Coles MD Signed: 08/23/2021 5:01 PM Workstation Name: [id number]
[2021-08-23] MEDS ORDERED: IBUPROFEN 800 MG TAB PO ONE (17:15)
--- NOTE | 2021-08-23 17:17 | Emergency Department Report ---
ED Lower Extremity HPI - General Chief Complaint: Extremity Injury, Lower Stated Complaint: SIDE PAIN Time Seen by Provider: 08/23/21 17:14 Source: patient Mode of arrival: Ambulatory Limitations: Language Barrier - History of Present Illness Initial Comments: Patient is a 41-year-old female that comes to the ER after being hit by a forklift yesterday at work. She is complaining of right hip pain. She is ambulatory and neurovascularly intact. MD Complaint: hip injury Type of Injury: blunt Place: work Severity: mild Improves With: nothing Worsens With: nothing Context: direct blow - Related Data Previous Rx's Medication Instructions Recorded Last Taken Type Esomeprazole Magnesium [NexIUM] 40 mg PO QDAY #30 capsule. 05/20/17 Unknown Rx Sucralfate 1 gm PO AC #120 tablet 05/20/17 Unknown Rx Omeprazole 20 mg PO DAILY #30 capsule. 10/13/20 Unknown Rx Sucralfate [Carafate] 1 gm PO Q6HR #28 tab 10/13/20 Unknown Rx Nystas/Diphen/Xyl Visc/Mylanta 30 ml MM Q8H PRN 5 Days #1 bottle 12/04/20 Unknown Rx [Magic Mouthwash] Amoxicillin [Trimox CAP] 500 mg PO BID #20 capsule 06/27/21 Unknown Rx Ibuprofen [Motrin] 800 mg PO Q8HR PRN #30 tablet 08/23/21 Unknown Rx Allergies Allergy/AdvReac Type Severity Reaction Status Date / Time No Known Allergies Allergy Verified 06/27/21 11:30 ED Review of Systems ROS: Stated complaint: SIDE PAIN Other details as noted in HPI Comment: All other systems reviewed and negative ED Past Medical Hx - Past Medical History Previous Medical History?: No Hx Heart Attack/AMI: No Additional medical history: Gastritis - Surgical History Past Surgical History?: Yes Hx Cholecystectomy: Yes Additional Surgical History: c-sec x 3 - Social History Smoking Status: Unknown if ever smoked - Medications Home Medications: Home Medications Medication Instructions Recorded Confirmed Last Taken Type Esomeprazole Magnesium [NexIUM] 40 mg PO QDAY #30 capsule. 05/20/17 Unknown Rx Sucralfate 1 gm PO AC #120 tablet 05/20/17 Unknown Rx Omeprazole 20 mg PO DAILY #30 capsule. 10/13/20 Unknown Rx Sucralfate [Carafate] 1 gm PO Q6HR #28 tab 10/13/20 Unknown Rx Nystas/Diphen/Xyl Visc/Mylanta 30 ml MM Q8H PRN 5 Days #1 bottle 12/04/20 Unknown Rx [Magic Mouthwash] Amoxicillin [Trimox CAP] 500 mg PO BID #20 capsule 06/27/21 Unknown Rx Ibuprofen [Motrin] 800 mg PO Q8HR PRN #30 tablet 08/23/21 Unknown Rx ED Physical Exam - General Limitations: No Limitations, Language Barrier ED Course Vital Signs 08/23/21 14:21 Temperature 98.0 F Pulse Rate 83 Respiratory 16 Rate Blood Pressure 119/74 [Right] O2 Sat by Pulse 97 Oximetry ED Lower Extremity MDM - Radiology Data Radiology results: report reviewed, image reviewed nap - Medical Decision Making Vital Signs 08/23/21 14:21 Temperature 98.0 F Pulse Rate 83 Respiratory 16 Rate Blood Pressure 119/74 [Right] O2 Sat by Pulse 97 Oximetry X-ray noted with no acute process. Patient neurovascularly intact. Ambulatory. Medicated for pain in [employer] Patient being discharged home with discharge plan of care including diet, activity, medications and follow-up. She verbalizes understanding Critical care attestation.: If time is entered above; I have spent that time in minutes in the direct care of this critically ill patient, excluding procedure time. ED Disposition Clinical Impression: Contusion, hip Qualifiers: Encounter type: initial encounter Laterality: right Qualified Code(s): S70.01XA - Contusion of right hip, initial encounter Disposition: HOME / SELF CARE / HOMELESS Is pt being admited?: No Does the pt Need Aspirin: No Condition: Stable Instructions: Contusion, Oect-tr-Song Additional Instructions: Expect to be sore for couple days. Alternate ice and heat to your hip Medications as ordered today for pain [id number] Tylenol can be used to supplement your pain Diet and activity as tolerated Referrals: BERNIE MENDOZA MD [Staff Physician] - 3-5 Days Forms: Work/School Release Form(ED) Time of Disposition: 17:30
[2021-08-23 18:29] VITALS: BP 124/68
== END 2021-08-23 18:28 | disposition home or self-care (01) ==
LOC: ED 13:30
DX: S70.01XA Contusion of right hip, initial encounter (principal); Z98.890 Other specified postprocedural states; Z79.899 Other long term (current) drug therapy; X58.XXXA Exposure to other specified factors, initial encounter; Y93.89 Activity, other specified; Y92.89 Other specified places as the place of occurrence of the external cause; Y99.8 Other external cause status
CPT/HCPCS: 99283

== ENCOUNTER 2021-10-22 18:00 | Emergency (ER) | payer SELFPAY ==
[2021-10-22 18:19] VITALS: BP 126/71
[2021-10-22] MEDS ORDERED: AMOXICILLIN/K CLAV 875/125MG TAB PO ONE (21:20)
[2021-10-22] MEDS ORDERED: ONDANSETRON 4 MG ODT TAB PO ONE (21:20)
[2021-10-22] MEDS ORDERED: LIDOCAINE VISCOUS 2% 15 ML ORAL LIQD PO ONE (21:20)
[2021-10-22] MEDS ORDERED: FAMOTIDINE 20 MG TAB PO ONE (21:20)
[2021-10-22] MEDS ORDERED: KETOROLAC 60 MG/2 ML INJ IM ONE (21:20)
[2021-10-22] MEDS ORDERED: dexAMETHasone 20 MG/5 ML VIAL IM ONE (21:20)
--- NOTE | 2021-10-22 21:58 | XRay Report ---
CHEST 2 VIEWS INDICATION / CLINICAL INFORMATION: COUGH. COMPARISON: 06/27/2021 FINDINGS: SUPPORT DEVICES: None. HEART / MEDIASTINUM: No significant abnormality. LUNGS / PLEURA: No significant pulmonary or pleural abnormality. No pneumothorax. ADDITIONAL FINDINGS: No significant additional findings. IMPRESSION: 1. No acute findings. Signer Name: Malik Macias MD Signed: 10/22/2021 9:54 PM Workstation Name: [id number]
--- NOTE | 2021-10-22 22:09 | Emergency Department Report ---
ED General Adult HPI - General Chief complaint: Abdominal Pain Stated complaint: ABD/HEAD/BACK/THROAT PAIN Source: patient Mode of arrival: Ambulatory Limitations: No Limitations - History of Present Illness Initial comments: Patient is a 41-year-old female with no past medical history presents to the ED with complaint of acute onset persistent sore throat, diffuse body aches and pains, persistent headache for the last 3 days. Patient states that no one else at home is had similar symptoms. Patient states that she has been taking [id number] medications with no relief. Patient denies dizziness, syncope, chest pain, shortness of breath, fever, chills, nausea and vomiting or diarrhea, abdominal pain, neck pain, back pain, dysuria, urinary frequency and urgency or nasal and sinus congestion. MD Complaint: Sore throat, cervical lymphadenopathy, body aches and pains, headache -: Gradual, days(s) (3) Location: head, chest Radiation: non-radiation Severity scale (0 -10): 8 Quality: aching, sharp Consistency: constant Improves with: none Worsens with: none Associated Symptoms: denies other symptoms, cough, fever/chills, headaches, loss of appetite, malaise, nausea/vomiting. denies: confusion, chest pain, diaphoresis, rash, seizure, shortness of breath, syncope, weakness Treatments Prior to Arrival: none - Related Data Previous Rx's Medication Instructions Recorded Last Taken Type Esomeprazole Magnesium [NexIUM] 40 mg PO QDAY #30 capsule. 05/20/17 Unknown Rx Sucralfate 1 gm PO AC #120 tablet 05/20/17 Unknown Rx Omeprazole 20 mg PO DAILY #30 capsule. 10/13/20 Unknown Rx Sucralfate [Carafate] 1 gm PO Q6HR #28 tab 10/13/20 Unknown Rx Nystas/Diphen/Xyl Visc/Mylanta 30 ml MM Q8H PRN 5 Days #1 bottle 12/04/20 Unknown Rx [Magic Mouthwash] Amoxicillin [Trimox CAP] 500 mg PO BID #20 capsule 06/27/21 Unknown Rx Amoxicillin/K Clav Tab [Augmentin 1 tab PO Q12HR #20 tab 10/22/21 Unknown Rx 875 mg] Benzonatate [Tessalon Perles] 100 mg PO Q8HR #30 cap 10/22/21 Unknown Rx Famotidine [Pepcid] 20 mg PO BID #60 tablet 10/22/21 Unknown Rx Ibuprofen [Motrin 800 MG tab] 800 mg PO Q8HR PRN #30 tablet 10/22/21 Unknown Rx Lidocaine Viscous 2% 15 ml PO Q6H PRN #120 ml 10/22/21 Unknown Rx Ondansetron [Zofran Odt] 4 mg PO Q8HR PRN #20 tab.rapdis 10/22/21 Unknown Rx predniSONE [Deltasone] 40 mg PO QDAY #10 tab 10/22/21 Unknown Rx Allergies Allergy/AdvReac Type Severity Reaction Status Date / Time No Known Allergies Allergy Verified 06/27/21 11:30 ED Review of Systems ROS: Stated complaint: ABD/HEAD/BACK/THROAT PAIN Other details as noted in HPI Constitutional: chills, fever, malaise Eyes: denies: eye pain, eye discharge, vision change ENT: ear pain, throat pain, congestion Respiratory: cough. denies: shortness of breath, wheezing Cardiovascular: denies: chest pain, palpitations Endocrine: no symptoms reported Gastrointestinal: nausea, vomiting. denies: abdominal pain, diarrhea Genitourinary: denies: urgency, dysuria, discharge Musculoskeletal: back pain, arthralgia, myalgia. denies: joint swelling Skin: denies: rash, lesions Neurological: headache. denies: weakness, paresthesias Psychiatric: denies: anxiety, depression Hematological/Lymphatic: denies: easy bleeding, easy bruising ED Past Medical Hx - Past Medical History Previous Medical History?: No Hx Heart Attack/AMI: No Additional medical history: Gastritis - Surgical History Hx Cholecystectomy: Yes Additional Surgical History: c-sec x 3 - Social History Smoking Status: Never Smoker - Medications Home Medications: Home Medications Medication Instructions Recorded Confirmed Last Taken Type Esomeprazole Magnesium [NexIUM] 40 mg PO QDAY #30 capsule. 05/20/17 Unknown Rx Sucralfate 1 gm PO AC #120 tablet 05/20/17 Unknown Rx Omeprazole 20 mg PO DAILY #30 capsule. 10/13/20 Unknown Rx Sucralfate [Carafate] 1 gm PO Q6HR #28 tab 10/13/20 Unknown Rx Nystas/Diphen/Xyl Visc/Mylanta 30 ml MM Q8H PRN 5 Days #1 bottle 12/04/20 Unk nown Rx [Magic Mouthwash] Amoxicillin [Trimox CAP] 500 mg PO BID #20 capsule 06/27/21 Unknown Rx Amoxicillin/K Clav Tab [Augmentin 1 tab PO Q12HR #20 tab 10/22/21 Unknown Rx 875 mg] Benzonatate [Tessalon Perles] 100 mg PO Q8HR #30 cap 10/22/21 Unknown Rx Famotidine [Pepcid] 20 mg PO BID #60 tablet 10/22/21 Unknown Rx Ibuprofen [Motrin 800 MG tab] 800 mg PO Q8HR PRN #30 tablet 10/22/21 Unknown Rx Lidocaine Viscous 2% 15 ml PO Q6H PRN #120 ml 10/22/21 Unknown Rx Ondansetron [Zofran Odt] 4 mg PO Q8HR PRN #20 tab.rapdis 10/22/21 Unknown Rx predniSONE [Deltasone] 40 mg PO QDAY #10 tab 10/22/21 Unknown Rx ED Physical Exam - General Limitations: No Limitations General appearance: alert, in no apparent distress - Head Head exam: Present: atraumatic, normocephalic, normal inspection - Eye Eye exam: Present: normal appearance, PERRL, EOMI Pupils: Present: normal accommodation - ENT ENT exam: Present: mucous membranes moist, normal external ear exam, other (Grossly congested nasal passages; erythematous oropharynx and tonsils; bulging right tympanic membranes) - Neck Neck exam: Present: normal inspection, full ROM, lymphadenopathy (Anterior cervical lymphadenopathy). Absent: tenderness, meningismus - Respiratory Respiratory exam: Present: normal lung sounds bilaterally. Absent: respiratory distress, wheezes, rales, rhonchi, chest wall tenderness, accessory muscle use, decreased breath sounds, prolonged expiratory - Cardiovascular Cardiovascular Exam: Present: regular rate, normal rhythm, normal heart sounds. Absent: systolic murmur, diastolic murmur, rubs, gallop - GI/Abdominal GI/Abdominal exam: Present: soft, normal bowel sounds. Absent: tenderness, guarding, hyperactive bowel sounds, hypoactive bowel sounds, organomegaly - Extremities Exam Extremities exam: Present: normal inspection, full ROM, normal capillary refill. Absent: tenderness - Back Exam Back exam: Present: normal inspection, full ROM. Absent: tenderness, CVA tenderness (R), CVA tenderness (L), muscle spasm, paraspinal tenderness, vertebral tenderness - Neurological Exam Neurological exam: Present: alert, oriented X3, CN II-XII intact, normal gait, reflexes normal - Psychiatric Psychiatric exam: Present: normal affect, normal mood - Skin Skin exam: Present: warm, dry, intact, normal color. Absent: rash ED Course Vital Signs 10/22/21 18:14 Temperature 99.5 F Pulse Rate 82 Respiratory 16 Rate Blood Pressure 126/71 O2 Sat by Pulse 99 Oximetry ED Medical Decision Making - Radiology Data Radiology results: report reviewed, image reviewed [facility] [address] [place] [address] XRay Report Signed Patient: JOSY VILLAR MR#: [id number] : 1980 Acct:[id number] Age/Sex: 41 / F ADM Date: 10/22/21 Loc: ED Attending Dr: Ordering Physician: CHAKA KHAN Date of Service: 10/22/21 Procedure(s): XR chest routine 2V Accession Number(s): [id number] cc: CHAKA KHAN Fluoro Time In Minutes: CHEST 2 VIEWS INDICATION / CLINICAL INFORMATION: COUGH. COMPARISON: 06/27/2021 FINDINGS: SUPPORT DEVICES: None. HEART / MEDIASTINUM: No significant abnormality. LUNGS / PLEURA: No significant pulmonary or pleural abnormality. No pneumothorax. ADDITIONAL FINDINGS: No significant additional findings. IMPRESSION: 1. No acute findings. Signer Name: Malik Macias MD Signed: 10/22/2021 9:54 PM Workstation Name: [id number] Transcribed By: TL Dictated By: Malik Macias MD Electronically Authenticated By: Malik Macias MD Signed Date/Time: 10/22/212153 DD/ 52 TD/TT: - Medical Decision Making This is a 41-year-old female with no past medical history presents to the ED with complaint of acute onset persistent sore throat, diffuse body aches and pains, persistent headache for the last 3 days. Patient states that no one else at home is had similar symptoms. Patient states that she has been taking [id number] medications with no relief. In the ED, patient is alert and oriented x3 and is not in any distress. Patient was treated for pain in the ED and also started on oral antibiotics in the ED. Chest x-ray showed no acute cardiopulmonary abnormalities or pneumonitis. On reevaluation, patient's pain is well controlled with medication. Patient was discharge home on pain medications and advised to follow-up with her primary care physician in 7 to 10 days for reevaluation or return to the ED immediately if symptoms get worse. - Differential Diagnosis strep pharyngitis; bronchitis; pneumonia; otitis media; URI Critical care attestation.: If time is entered above; I have spent that time in minutes in the direct care of this critically ill patient, excluding procedure time. ED Disposition Clinical Impression: Acute bacterial pharyngitis, Acute bacterial tonsillitis, Acute upper respiratory infection Acute bronchitis Qualifiers: Bronchitis organism: other organism Qualified Code(s): J20.8 - Acute bronchitis due to other specified organisms Disposition: HOME / SELF CARE / HOMELESS Is pt being admited?: No Does the pt Need Aspirin: No Condition: Stable Instructions: Abdominal Pain (ED), Upper Respiratory Infection, Adult, [id number], Tonsillitis, Uzom-io-Noul, Pharyngitis, [id number], Cough, Adult, [id number]-[id number], Acute Bronchitis (ED), Acute Bronchitis, Adult, [id number] Additional Instructions: [place] los medicamentos con alimentos, serene muchos lquidos, geri un seguimiento con cates mdico de atencin primaria en 7 a 10 carrasco para david reevaluacin. Regrese al servicio de urgencias inmediatamente si los sntomas empeoran. Prescriptions: Amoxicillin/K Clav Tab [Augmentin 875 mg] 1 tab PO Q12HR #20 tab predniSONE [Deltasone] 40 mg PO QDAY #10 tab Lidocaine Viscous 2% 15 ml PO Q6H PRN #120 ml PRN Reason: Sore Throat Ibuprofen [Motrin 800 MG tab] 800 mg PO Q8HR PRN #30 tablet PRN Reason: Pain, Moderate (4-6) Famotidine [Pepcid] 20 mg PO BID #60 tablet Benzonatate [Tessalon Perles] 100 mg PO Q8HR #30 cap Ondansetron [Zofran Odt] 4 mg PO Q8HR PRN #20 tab.rapdis PRN Reason: Nausea Referrals: [facility] [Provider Group] - 7-10 days Forms: Work/School Release Form(ED) Time of Disposition: 22:10 Print Language: MALTESE
== END 2021-10-22 22:51 | disposition home or self-care (01) ==
LOC: ED 18:00
DX: J20.9 Acute bronchitis, unspecified (principal); J02.8 Acute pharyngitis due to other specified organisms; B96.89 Other specified bacterial agents as the cause of diseases classified elsewhere; J06.9 Acute upper respiratory infection, unspecified; Z90.49 Acquired absence of other specified parts of digestive tract; Z79.899 Other long term (current) drug therapy
CPT/HCPCS: 71046; 96372; 99283; J1100; J1885; J3490; Q0162